=== PATIENT | female | born 1980 | race Caucasian/White ===

== ENCOUNTER 2016-08-02 10:32 | Outpatient (CLI) ==
[2015-06-28 23:15] VITALS: BMI 50.6
[2016-08-02 11:01] LABS: BASOPHILS % (AUTO) 0.3 % (0.0-3.0); EOSINOPHILS # (AUTO) 0.2 K/ul (0.0-0.7); EOSINOPHILS % (AUTO) 1.4 % (0.0-7.0); HEMATOCRIT 48.1 % (37.0-47.0); IMMATURE GRANULOCYTE % (AUTO) 0.3 % (0.0-5.0); LYMPHOCYTES # (AUTO) 3.3 K/uL (0.60-3.4); MEAN CORPUSCULAR HGB CONC 31.2 (31.8-35.4); MEAN CORPUSCULAR VOLUME 92.9 fl (81.0-99.0); MONOCYTES # (AUTO) 0.9 K/uL (0.4-2.0); MONOCYTES % (AUTO) 6.4 (0-10); NEUTROPHILS # (AUTO) 9.2 K/ul (2.0-6.9); NEUTROPHILS % (AUTO) 67.6; PLATELET COUNT 257 10^3/uL (140-440); RED BLOOD COUNT 5.18 10^6/ul (4.20-5.40); WHITE BLOOD COUNT 13.55 K/ul (4.6-10.2)
[2016-08-02 11:14] LABS: ALBUMIN 3.5 g/dL (3.4-5.0); ALBUMIN/GLOBULIN RATIO 0.95; ANION GAP 14.7; BILIRUBIN,TOTAL 0.39 mg/dL (0.00-1.20); BUN/CREATININE RATIO 6.08; CALCIUM 8.8 mg/dL (8.2-10.2); CREATININE 1.15 mg/dL (0.60-1.30); POTASSIUM 3.7 mmol/L (3.5-5.10); TOTAL PROTEIN 7.2 g/dL (6.4-8.2)
--- NOTE | 2016-08-02 13:57 | DI ---
EXAM: Chest two views HISTORY: Pneumonia, unspecified organism COMPARISON: 07/20/2016 TECHNIQUE: Two views of the chest were performed FINDINGS: Lungs are clear. Prominent epicardial fat pad present. There is no pleural effusion or p neumothorax. The heart is normal in size. The mediastinal contour is normal. There are no acute a bnormalities of the bones. IMPRESSION: No acute cardiopulmonary process.
== END 2016-08-02 10:33 | disposition home or self-care (01) ==
LOC: LAB 10:32
PROVIDERS: ATTEND Nurse Practitioner Family
DX: J18.9 Pneumonia, unspecified organism (principal); E78.5 Hyperlipidemia, unspecified
CPT/HCPCS: 36415; 80053; 85025

== ENCOUNTER 2016-08-05 10:13 | Outpatient (CLI) ==
[2015-06-28 23:15] VITALS: BMI 50.6
--- NOTE | 2016-08-05 11:21 | CT ---
EXAM: CT scan of the chest with and without contrast HISTORY: Tobacco use. TECHNIQUE: Imaging of the chest was performed before and after the intravenous administration of co ntrast. 5 mm thick axial images and coronal and sagittal reconstructions were provided for interpre tation. Comparison 08/02/2016 two-view chest. FINDINGS: The lungs are clear. The heart is normal size. No mediastinal masses are seen. There i s a normal appearance of the thoracic aorta. No lytic or blastic lesions are seen within the osseou s structures. There has been previous cholecystectomy. There is a tiny hypodense nodule seen within the left adrenal gland measuring up to 1.7 cm transverse, 1.1 cm AP. There is an additional tiny no dule seen within the right adrenal gland measuring up to 1.5 cm transverse maximum. IMPRESSION: No acute abnormalities are seen within the thorax. Small probable adrenal adenomas. A 6-month follow-up CT scan of the abdomen can be performed withou t contrast to check for stability.
== END 2016-08-05 10:14 | disposition home or self-care (01) ==
LOC: RAD 10:13
PROVIDERS: ATTEND Nurse Practitioner Family
DX: J18.9 Pneumonia, unspecified organism (principal); J98.11 Atelectasis; Z72.0 Tobacco use

== ENCOUNTER 2016-11-01 16:07 | Outpatient (CLI) ==
[2015-06-28 23:15] VITALS: BMI 50.6
[2016-11-01 16:29] LABS: BASOPHILS % (AUTO) 0.3 % (0.0-3.0); EOSINOPHILS # (AUTO) 0.1 K/ul (0.0-0.7); HEMATOCRIT 44.1 % (37.0-47.0); HEMOGLOBIN 14.7 g/dl (12.0-16.0); IMMATURE GRANULOCYTE % (AUTO) 0.3 % (0.0-5.0); LYMPHOCYTES # (AUTO) 3.2 K/uL (0.60-3.4); LYMPHOCYTES % (AUTO) 27.6 (10.0-50.0); MEAN CORPUSCULAR HEMOGLOBIN 30.7 pg (27.0-31.0); MEAN CORPUSCULAR HGB CONC 33.3 (31.8-35.4); MEAN CORPUSCULAR VOLUME 92.1 fl (81.0-99.0); MONOCYTES # (AUTO) 0.8 K/uL (0.4-2.0); NEUTROPHILS # (AUTO) 7.4 K/ul (2.0-6.9); NEUTROPHILS % (AUTO) 63.8; PLATELET COUNT 195 10^3/uL (140-440); RED BLOOD COUNT 4.79 10^6/ul (4.20-5.40); WHITE BLOOD COUNT 11.64 K/ul (4.6-10.2)
[2016-11-01 16:40] LABS: ALBUMIN 3.7 g/dL (3.4-5.0); ALBUMIN/GLOBULIN RATIO 1.06; ANION GAP 10.8; BILIRUBIN,TOTAL 0.53 mg/dL (0.00-1.20); BUN/CREATININE RATIO 8.57; CALCIUM 8.8 mg/dL (8.2-10.2); CREATININE 1.05 mg/dL (0.60-1.30); POTASSIUM 3.8 mmol/L (3.5-5.10); TOTAL PROTEIN 7.2 g/dL (6.4-8.2)
== END 2016-11-01 16:08 | disposition home or self-care (01) ==
LOC: CAR 16:07
PROVIDERS: ATTEND Nurse Practitioner Family
DX: R00.2 Palpitations (principal); R11.2 Nausea with vomiting, unspecified; R19.7 Diarrhea, unspecified
CPT/HCPCS: 36415; 80053; 85025; 93005; 93010

== ENCOUNTER 2017-02-02 11:18 | Outpatient (CLI) ==
[2015-06-28 23:15] VITALS: BMI 50.6
--- NOTE | 2017-02-02 11:56 | DI ---
Exam: Five x-rays of the lumbar spine. Comparison: 04/17/2009. Reason for exam: Back pain. FINDINGS: No acute fracture or listhesis. There is similar appearing vertebral body loss when comp ared to the previous imaging. No unexplained calcific soft tissue densities or radiopaque retained f oreign bodies. No obvious pars defects are seen. There is straightening of the lumbar lordotic curv e. Impression: 1. No acute fracture or listhesis in the lumbar spine. 2. Degenerative disc disease.
== END 2017-02-02 11:19 | disposition home or self-care (01) ==
LOC: RAD 11:18
PROVIDERS: ATTEND Emergency Medicine
DX: M54.5 Low back pain (principal)

== ENCOUNTER 2017-03-03 10:13 | Inpatient (IN) ==
[2017-03-03] MEDS ORDERED: ATROPINE SULFATE PFS IVP PRN (10:33)
[2017-03-03] MEDS ORDERED: VISTARIL INJ IM PRN (10:33)
[2017-03-03] MEDS ORDERED: NITROSTAT SL PRN (10:33)
[2017-03-03] MEDS ORDERED: TYLENOL PO PRN (10:33)
[2017-03-03] MEDS ORDERED: DEMEROL 25 MG/ML SYRINGE IVP PRN ×2 (10:53→15:06)
[2017-03-03] MEDS ORDERED: VASOTEC IV IVP STA (10:58)
[2017-03-03] MEDS ORDERED: VASOTEC IV IVP PRN (10:58)
[2017-03-03] MEDS: SODIUM CHLORIDE 1,000 ML IV SCH ×2 (11:15→20:19)
[2017-03-03] MEDS: ZOFRAN 4 MG/2 ML IVP PRN (11:21)
[2017-03-03 11:36] LABS: BASOPHILS % (AUTO) 0.2 % (0.0-3.0); EOSINOPHILS # (AUTO) 0.1 K/ul (0.0-0.7); EOSINOPHILS % (AUTO) 0.8 % (0.0-7.0); HEMATOCRIT 47.1 % (37.0-47.0); IMMATURE GRANULOCYTE % (AUTO) 0.3 % (0.0-5.0); LYMPHOCYTES # (AUTO) 2.4 K/uL (0.60-3.4); LYMPHOCYTES % (AUTO) 17.8 (10.0-50.0); MEAN CORPUSCULAR HEMOGLOBIN 30.5 pg (27.0-31.0); MEAN CORPUSCULAR VOLUME 89.9 fl (81.0-99.0); NEUTROPHILS # (AUTO) 10.1 K/ul (2.0-6.9); NEUTROPHILS % (AUTO) 73.9; PLATELET COUNT 186 10^3/uL (140-440); RED BLOOD COUNT 5.24 10^6/ul (4.20-5.40); WHITE BLOOD COUNT 13.66 K/ul (4.6-10.2)
[2017-03-03 11:43] VITALS: BMI 47.4
--- NOTE | 2017-03-03 12:04 | DI ---
EXAM: Two views of the chest. History: Cough. Comparison: Chest radiograph 08/02/2016 Findings: Heart size is normal. No focal consolidation. No appreciable pleural fluid and no pneum othorax. No acute osseous abnormalities. Impression: No acute cardiopulmonary process.
[2017-03-03 12:09] LABS: ALBUMIN 3.4 g/dL (3.4-5.0); ALBUMIN/GLOBULIN RATIO 1.03; ANION GAP 14.2; BILIRUBIN,TOTAL 0.68 mg/dL (0.00-1.20); BUN/CREATININE RATIO 7.2; CALCIUM 8.8 mg/dL (8.2-10.2); CREATININE 1.11 mg/dL (0.60-1.30); POTASSIUM 3.2 mmol/L (3.5-5.10); TOTAL PROTEIN 6.7 g/dL (6.4-8.2); TROPONIN I 0.019 ng/ml (0.0000-0.4000)
--- NOTE | 2017-03-03 12:10 | CT ---
EXAM: CT of the abdomen pelvis without contrast History: Abdominal pain. Comparison: CT abdomen pelvis 04/29/2015 Technique: Multiplanar CT images through the abdomen pelvis were obtained without the administratio n of IV contrast Findings: Lung bases are free of consolidation. No acute osseous abnormalities. Status post cholecystectomy. No focal liver or splenic lesions. No peripancreatic inflammation. S table small benign bilateral adrenal adenomas. No renal stones and no hydronephrosis. No bowel obs truction. Wall thickening involving multiple loops of small bowel with adjacent inflammation and hy peremia. The appendix is not dilated or inflamed. Colonic diverticulosis. There is also mild wall thickening of the colon. Bladder is not well distended. No focal bladder wall thickening. Small to moderate amount of fluid within the pelvis. Fluid seen within the rectum. Uterus is not seen. Impression: 1. Enterocolitis with the inflammation most significant involving the distal small bowel. Etiology is most likely infectious or inflammatory. No bowel obstruction. 2. Small to moderate amount of fluid within the pelvis. 3. Colonic diverticulosis. 4. Stable small benign bilateral adrenal adenomas
[2017-03-03] MEDS ORDERED: NON-FORMULARY MEDICATION (Hydroxyzine Hcl [Hydroxyzine Hcl] 50 MG) PO PRN ×22 (12:18)
[2017-03-03] MEDS ORDERED: NON-FORMULARY MEDICATION (Omeprazole Magnesium [Prilosec Otc] 20 MG) PO SCH ×22 (12:30)
[2017-03-03] MEDS ORDERED: ATARAX PO PRN (12:38)
[2017-03-03 13:18] LABS: BILIRUBIN,URINE 2+ (NEGATIVE); KETONES,URINE 1+ (NEGATIVE); LEUKOCYTE ESTERASE ,URINE Negative (NEGATIVE); NITRITE,URINE Negative (NEGATIVE); PROTEIN,URINE 2+ (NEGATIVE); URINE, BLOOD Negative (NEGATIVE)
[2017-03-03 13:21] LABS: ADD URINE MICROSCOPIC YES
[2017-03-03] MEDS ORDERED: DEMEROL 50 MG/ML SYRINGE IVP PRN (15:37)
[2017-03-03] MEDS: TOPAMAX PO SCH (15:49)
[2017-03-03] MEDS: DIAMOX PO SCH ×2 (18:14→20:13)
[2017-03-03 19:24] LABS: TROPONIN I 0.017 ng/ml (0.0000-0.4000)
[2017-03-03] MEDS: DEMEROL 50 MG/ML SYRINGE IVP PRN (20:15)
[2017-03-03] MEDS: PROTONIX IV IVP SCH (20:17)
[2017-03-03] MEDS ORDERED: NON-FORMULARY MEDICATION (Lovastatin [Lovastatin] 10 MG) PO SCH (21:00)
[2017-03-03] MEDS ORDERED: ACETAZOLAMIDE 500 MG PO SCH (21:00)
[2017-03-04] MEDS: DEMEROL 50 MG/ML SYRINGE IVP PRN ×5 (00:40→20:04)
[2017-03-04 04:17] LABS: BASOPHILS % (AUTO) 0.2 % (0.0-3.0); EOSINOPHILS # (AUTO) 0.3 K/ul (0.0-0.7); EOSINOPHILS % (AUTO) 2.5 % (0.0-7.0); HEMATOCRIT 42.3 % (37.0-47.0); IMMATURE GRANULOCYTE % (AUTO) 0.3 % (0.0-5.0); LYMPHOCYTES # (AUTO) 3.6 K/uL (0.60-3.4); LYMPHOCYTES % (AUTO) 29.6 (10.0-50.0); MEAN CORPUSCULAR HEMOGLOBIN 30.8 pg (27.0-31.0); MEAN CORPUSCULAR HGB CONC 33.1 (31.8-35.4); MEAN CORPUSCULAR VOLUME 93.2 fl (81.0-99.0); MONOCYTES % (AUTO) 7.9 (0-10); NEUTROPHILS # (AUTO) 7.2 K/ul (2.0-6.9); NEUTROPHILS % (AUTO) 59.5; PLATELET COUNT 150 10^3/uL (140-440); RED BLOOD COUNT 4.54 10^6/ul (4.20-5.40); WHITE BLOOD COUNT 12.12 K/ul (4.6-10.2)
[2017-03-04 04:38] LABS: ALBUMIN/GLOBULIN RATIO 1.15; ANION GAP 12.9; BILIRUBIN,TOTAL 0.5 mg/dL (0.00-1.20); BUN/CREATININE RATIO 7.2; CALCIUM 8.2 mg/dL (8.2-10.2); CREATININE 1.11 mg/dL (0.60-1.30); POTASSIUM 3.9 mmol/L (3.5-5.10); TOTAL PROTEIN 5.6 g/dL (6.4-8.2)
[2017-03-04] MEDS: SODIUM CHLORIDE 1,000 ML IV SCH ×3 (05:28→22:40)
[2017-03-04] MEDS ORDERED: PRILOSEC PO SCH (06:30)
[2017-03-04] MEDS: DIAMOX PO SCH ×4 (08:12→20:02)
[2017-03-04] MEDS: PROTONIX IV IVP SCH ×2 (08:13→20:12)
--- NOTE | 2017-03-04 10:25 | PCM.PROG ---
Attending Provider: ATTENDING PROVIDER: [facility] DATE OF SERVICE: 03/04/17 SUBJECTIVE: This 36 year old WHITE/ F was hospitalized 03/03/17 with gastroenteritis, intractable vomiting and uncontrolled hypertension. The patient has been given Demerol and Zofran q.6hr ct scan showed enteritis. still having diarrhea no vomiting. no fever or chillsThe patient is lying in bed. She has some abdominal discomfort admitted with gastroenteritis intractable vomiting and uncontrolled htn. patient has been given demerol and zofran q.6hr ct scan showed enteritis. still having diarrhea no vomiting. no fever or chills REVIEW OF SYSTEMS: CONSTITUTIONAL: No fever, no chills. ENDOCRINE: No weight loss or weight gain. HEENT: No sinus drainage, no sore throat. CVS: No angina symptoms. No CHF symptoms. No palpitations. No atypical chest pain for CAD. No shortness of breath. RESPIRATORY: No cough, no hemoptysis. GI: No melena. No abdominal pain. No nausea, no vomiting. : No hematuria. No polyuria. SKIN: No rash. No wounds. MUSCULOSKELETAL: No pain. BAND SAW OPERATOR: No blackout, no dizziness. No headache. No double vision. PSYCHIATRIC: Not anxious; no depression. No suicidal thoughts. No homicidal thoughts. PHYSICAL EXAMINATION: GENERAL: Lying in bed in no distress. VITAL SIGNS: Temperature 97.0 F, Pulse 78, Respiratory Rate 13, BP 145/92, Pulse Ox 98% HEENT: Normocephalic, atraumatic. Mucosa is dry, pallor positive. NECK: No JVP, no carotid bruit. No lymphadenopathy. CARDIAC: S1, S2, no S3. No murmur, gallop or regurgitation. LUNGS: Clear to auscultation. ABDOMEN: Tenderness all over belly. Bowel sounds hyperactive. No rigidity, guarding or CVA tenderness. EXTREMITIES: No clubbing, cyanosis or edema. NEUROLOGIC: Awake, alert and oriented x3. LYMPHATIC: No palpable lymph nodes SKIN: Not dry. Intact. MUSCULOSKELETAL: No joint swelling. LAB REVIEW: 03/04/17 04:10 03/04/17 04:10 03/04/17 04:10: WBC 12.12 H, RBC 4.54, Hgb 14.0, Hct 42.3, MCV 93.2, MCH 30.8, MCHC 33.1, RDW Coeff of Nilo 13.1, Plt Count 150, Immature Gran % (Auto) 0.3, Neut % (Auto) 59.5, Lymph % (Auto) 29.6, [place] % (Auto) 7.9, Eos % (Auto) 2.5, Baso % (Auto) 0.2, Immature Gran # (Auto) 0.0, Neut # 7.2 H, Lymph # 3.6 H, [place] # 1.0, Eos # 0.3, Baso # 0.0, Sodium 143, Potassium 3.9, Chloride 109 H, Carbon Dioxide 25, Anion Gap 12.9, BUN 8, Creatinine 1.11, Estimated GFR (MDRD) 55.00, BUN/Creatinine Ratio 7.20, Glucose 96, Calcium 8.2, Total Bilirubin 0.50 , AST 10 L, ALT 12, Alkaline Phosphatase 48, Total Protein 5.6 L, Albumin 3.0 L , Globulin 2.6, Albumin/Globulin Ratio 1.15 03/03/17 18:50: Total Creatine Kinase 50, Myoglobin 43, Troponin I 0.0170 03/03/17 14:57: Lactic Acid 14.4, Procalcitonin < 0.05 03/03/17 13:14: Urine Color Dark, Urine Clarity Turbid, Urine pH 6.0, Ur Specific [place] >=1.030, Urine Protein 2+, Urine Glucose (UA) Negative, Urine Ketones 1+, Urine Blood Negative, Urine Nitrite Negative, Urine Bilirubin 2+, Urine Urobilinogen 0.2, Ur Leukocyte Esterase Negative, Ur Squamous Epith Cells Not present, Amorphous Sediment 4+ 03/03/17 11:23: Sodium 140, Potassium 3.2 L, Chloride 108 H, Carbon Dioxide 21, Anion Gap 14.2, BUN 8, Creatinine 1.11, Estimated GFR (MDRD) 55.00, BUN/ Creatinine Ratio 7.20, Glucose 112 H, Calcium 8.8, Total Bilirubin 0.68, AST 12 L, ALT 14, Alkaline Phosphatase 59, Total Creatine Kinase 45, Myoglobin 38, Troponin I 0.0190, Total Protein 6.7, Albumin 3.4, Globulin 3.3, Albumin/ Globulin Ratio 1.03, Amylase 36, Lipase 6 L 03/03/17 10:33: WBC 13.66 H, RBC 5.24, Hgb 16.0, Hct 47.1 H, MCV 89.9, MCH 30.5 , MCHC 34.0, RDW Coeff of Nilo 12.9, Plt Count 186, Immature Gran % (Auto) 0.3, Neut % (Auto) 73.9, Lymph % (Auto) 17.8, [place] % (Auto) 7.0, Eos % (Auto) 0.8, Baso % (Auto) 0.2, Immature Gran # (Auto) 0.0, Neut # 10.1 H, Lymph # 2.4, [place] # 1.0, Eos # 0.1, Baso # 0.0 ASSESSMENT: 1. Acute gastroenteritis 2. Uncontrolled hypertension 3. Dyslipidemia 4. Obesity 5. History of pseudo tumor cerebri 6. GERD 7. Migraine headache 8. History of stroke, seen by Dr. Kohli. 9. Depression PLAN: 1. Advised to walk 2. Clear liquid 3. Changed meds to p.o. 4. No DVT prophylaxis secondary to patient being active Plan and coordination of the patient's care discussed in the presence of Manager Heart and nurse. CONDITION: Stable SCRIBED BY: MARTHA UGALDE, Cloud Physicist scribed while in presence of service [facility] ([id number])
[2017-03-04] MEDS: LOPRESSOR PO SCH (20:03)
[2017-03-04] MEDS: CELEXA PO SCH (20:03)
[2017-03-04] MEDS: MEVACOR PO SCH (20:03)
[2017-03-04] MEDS: TOPAMAX PO SCH (20:03)
[2017-03-05] MEDS: DEMEROL 50 MG/ML SYRINGE IVP PRN ×2 (01:28→05:45)
[2017-03-05 04:44] LABS: BASOPHILS % (AUTO) 0.2 % (0.0-3.0); EOSINOPHILS # (AUTO) 0.3 K/ul (0.0-0.7); EOSINOPHILS % (AUTO) 2.4 % (0.0-7.0); HEMATOCRIT 41.4 % (37.0-47.0); HEMOGLOBIN 13.4 g/dl (12.0-16.0); IMMATURE GRANULOCYTE % (AUTO) 0.3 % (0.0-5.0); LYMPHOCYTES # (AUTO) 2.9 K/uL (0.60-3.4); LYMPHOCYTES % (AUTO) 26.4 (10.0-50.0); MEAN CORPUSCULAR HEMOGLOBIN 30.6 pg (27.0-31.0); MEAN CORPUSCULAR HGB CONC 32.4 (31.8-35.4); MEAN CORPUSCULAR VOLUME 94.5 fl (81.0-99.0); MONOCYTES # (AUTO) 0.8 K/uL (0.4-2.0); MONOCYTES % (AUTO) 7.4 (0-10); NEUTROPHILS % (AUTO) 63.3; PLATELET COUNT 151 10^3/uL (140-440); RED BLOOD COUNT 4.38 10^6/ul (4.20-5.40); WHITE BLOOD COUNT 11.08 K/ul (4.6-10.2)
[2017-03-05 05:05] LABS: ALBUMIN 2.9 g/dL (3.4-5.0); ANION GAP 10.9; BILIRUBIN,TOTAL 0.4 mg/dL (0.00-1.20); BUN/CREATININE RATIO 6.31; CALCIUM 8.1 mg/dL (8.2-10.2); CREATININE 0.95 mg/dL (0.60-1.30); POTASSIUM 3.9 mmol/L (3.5-5.10); TOTAL PROTEIN 5.8 g/dL (6.4-8.2)
[2017-03-05] MEDS: ASPIRIN EC PO SCH (08:21)
[2017-03-05] MEDS: TOPAMAX PO SCH ×2 (08:21→20:53)
[2017-03-05] MEDS: DIAMOX PO SCH ×4 (08:21→20:53)
[2017-03-05] MEDS: SODIUM CHLORIDE 1,000 ML IV SCH ×3 (09:10→20:10)
[2017-03-05] MEDS: PROTONIX IV IVP SCH ×2 (09:11→20:19)
[2017-03-05] MEDS ORDERED: ROCEPHIN 1 GM in SODIUM CHLORIDE 50 ML IV STA (09:28)
[2017-03-05] MEDS: DILAUDID 2 MG/ML SYRINGE IVP PRN ×3 (09:59→22:35)
--- NOTE | 2017-03-05 10:19 | CT ---
EXAM: CT scan of the abdomen and pelvis without contrast HISTORY: Abdominal pain TECHNIQUE: Imaging of the abdomen and pelvis was performed without contrast. 3 mm thin axial image s and coronal and sagittal reconstructions were provided for interpretation. Comparison 03/03/2017. FINDINGS: A tiny amount of free fluid is seen adjacent to the liver. The pancreas, adrenal glands and kidneys appear normal. The patient has had previous cholecystectomy. The small and large bowel loops are normal caliber. Inflammatory changes are again seen along the distal small bowel loops i n the right lower quadrant. The appendix appears normal. The colon appears to be normal caliber. There is no free air. The helical images obtained through the pelvis demonstrate a normal appearance of the rectum. There is a small amount of free fluid seen within the pelvis. Scattered diverticula are seen within the sigmoid colon without acute inflammation. Lung bases are clear. No lytic or blastic lesions are se en within the osseous structures. IMPRESSION: Inflammatory changes are again seen along the distal small bowel loops in the right low er quadrant suspicious for enteritis. No definite evidence for small bowel obstruction. There is no ureteral obstruction. There has been previous cholecystectomy. Mild diverticular disease of the sigmoid colon without acute inflammation.
[2017-03-05] MEDS: FLAGYL PO SCH ×2 (12:34→20:53)
[2017-03-05] MEDS: MEVACOR PO SCH (20:53)
[2017-03-05] MEDS: CELEXA PO SCH (20:53)
[2017-03-05] MEDS: LOPRESSOR PO SCH (20:53)
[2017-03-06] MEDS: DILAUDID 2 MG/ML SYRINGE IVP PRN ×3 (04:23→17:26)
[2017-03-06] MEDS: FLAGYL PO SCH ×3 (04:23→20:12)
[2017-03-06] MEDS: SODIUM CHLORIDE 1,000 ML IV SCH ×2 (04:59→15:36)
[2017-03-06 05:09] LABS: BASOPHILS % (AUTO) 0.2 % (0.0-3.0); EOSINOPHILS # (AUTO) 0.3 K/ul (0.0-0.7); HEMATOCRIT 39.7 % (37.0-47.0); HEMOGLOBIN 12.9 g/dl (12.0-16.0); IMMATURE GRANULOCYTE % (AUTO) 0.3 % (0.0-5.0); LYMPHOCYTES # (AUTO) 2.6 K/uL (0.60-3.4); MEAN CORPUSCULAR HEMOGLOBIN 30.7 pg (27.0-31.0); MEAN CORPUSCULAR HGB CONC 32.5 (31.8-35.4); MEAN CORPUSCULAR VOLUME 94.5 fl (81.0-99.0); MONOCYTES # (AUTO) 0.8 K/uL (0.4-2.0); NEUTROPHILS # (AUTO) 5.8 K/ul (2.0-6.9); NEUTROPHILS % (AUTO) 61.5; PLATELET COUNT 150 10^3/uL (140-440); WHITE BLOOD COUNT 9.48 K/ul (4.6-10.2)
[2017-03-06 05:42] LABS: ALBUMIN/GLOBULIN RATIO 1.25; ANION GAP 12.7; BILIRUBIN,TOTAL 0.25 mg/dL (0.00-1.20); BUN/CREATININE RATIO 4.04; CALCIUM 8.2 mg/dL (8.2-10.2); CREATININE 0.99 mg/dL (0.60-1.30); POTASSIUM 3.7 mmol/L (3.5-5.10); TOTAL PROTEIN 5.4 g/dL (6.4-8.2)
[2017-03-06] MEDS: ASPIRIN EC PO SCH (08:03)
[2017-03-06] MEDS: TOPAMAX PO SCH ×2 (08:03→20:10)
[2017-03-06] MEDS: ROCEPHIN 1 GM in SODIUM CHLORIDE 50 ML IV SCH (08:03)
[2017-03-06] MEDS: DIAMOX PO SCH ×4 (08:04→20:11)
[2017-03-06] MEDS: PROTONIX IV IVP SCH ×2 (09:05→20:08)
[2017-03-06] MEDS ORDERED: SODIUM CHLORIDE 1,000 ML IV SCH (15:34)
[2017-03-06] MEDS: ZESTRIL PO SCH (15:54)
[2017-03-06] MEDS: ZOFRAN 4 MG/2 ML IVP PRN (20:09)
[2017-03-06] MEDS: LOPRESSOR PO SCH (20:12)
[2017-03-06] MEDS: CELEXA PO SCH (20:13)
[2017-03-06] MEDS: MEVACOR PO SCH (20:15)
[2017-03-07] MEDS: FLAGYL PO SCH ×2 (05:57→14:25)
[2017-03-07] MEDS: DILAUDID 2 MG/ML SYRINGE IVP PRN (05:58)
[2017-03-07 06:10] LABS: BASOPHILS % (AUTO) 0.3 % (0.0-3.0); EOSINOPHILS # (AUTO) 0.2 K/ul (0.0-0.7); EOSINOPHILS % (AUTO) 1.9 % (0.0-7.0); HEMATOCRIT 40.2 % (37.0-47.0); HEMOGLOBIN 13.3 g/dl (12.0-16.0); IMMATURE GRANULOCYTE % (AUTO) 0.2 % (0.0-5.0); LYMPHOCYTES # (AUTO) 2.1 K/uL (0.60-3.4); LYMPHOCYTES % (AUTO) 22.2 (10.0-50.0); MEAN CORPUSCULAR HEMOGLOBIN 30.9 pg (27.0-31.0); MEAN CORPUSCULAR HGB CONC 33.1 (31.8-35.4); MEAN CORPUSCULAR VOLUME 93.3 fl (81.0-99.0); MONOCYTES # (AUTO) 0.7 K/uL (0.4-2.0); MONOCYTES % (AUTO) 7.8 (0-10); NEUTROPHILS # (AUTO) 6.4 K/ul (2.0-6.9); NEUTROPHILS % (AUTO) 67.6; PLATELET COUNT 157 10^3/uL (140-440); RED BLOOD COUNT 4.31 10^6/ul (4.20-5.40)
[2017-03-07 06:29] LABS: ALBUMIN 3.3 g/dL (3.4-5.0); ALBUMIN/GLOBULIN RATIO 1.22; ANION GAP 11.7; BILIRUBIN,TOTAL 0.25 mg/dL (0.00-1.20); BUN/CREATININE RATIO 4.85; CALCIUM 8.5 mg/dL (8.2-10.2); CREATININE 1.03 mg/dL (0.60-1.30); POTASSIUM 3.7 mmol/L (3.5-5.10)
[2017-03-07] MEDS: ROCEPHIN 1 GM in SODIUM CHLORIDE 50 ML IV SCH (10:03)
[2017-03-07] MEDS: ASPIRIN EC PO SCH (10:13)
[2017-03-07] MEDS: DIAMOX PO SCH ×2 (10:13→14:26)
[2017-03-07] MEDS: TOPAMAX PO SCH (10:14)
[2017-03-07] MEDS: ZESTRIL PO SCH (10:15)
[2017-03-07] MEDS: PROTONIX IV IVP SCH (10:15)
--- NOTE | 2017-03-07 11:48 | PN ---
DATE OF SERVICE: 03/05/17 SUBJECTIVE: The patient was admitted with acute gastroenteritis, it has been the third day and the patient is still complaining of pain 8 out of 10 and Demerol is not helping. I did order CT of the abdomen and pelvis earlier today which did showed gastroenteritis. Pain medication is changed to Dilaudid 2mg every 6 hours. No vomiting but having diarrhea watery. REVIEW OF SYSTEMS: CONSTITUTIONAL: No fever, no chills. HEENT: Normal. ENDOCRINE: No weight gain, no weight loss. CVS: No angina symptoms. No CHF symptoms. No palpitations. No atypical chest pain for CAD. No shortness of breath. No PND, no orthopnea. RESPIRATORY: No cough, no hemoptysis. GI: No nausea, no vomiting. No abdominal pain. : No hematuria. No polyuria. MUSCULOSKELETAL:. No joint swelling. PSYCHIATRIC: Not anxious. No depression. No suicidal thoughts. No homicidal thoughts. SKIN: Intact. No rash. PHYSICAL EXAMINATION: V/S: Blood pressure 150/98, respiratory rate 20, heart rate 82 and temperature 97.9 GENERAL: The patient is mildly distressed from the pain. HEENT: Normocephalic, atraumatic. Mucosa dry. NECK: Supple. No JVD, no carotid bruit. No lymphadenopathy. LUNGS: Clear to auscultation. No rales or rhonchi. HEART: S1, S2 normal. No S3. No murmur, gallop or regurgitation. ABDOMEN: Soft, tender all over. Bowel sounds hypoactive. No rigidity. No rebound or guarding. No CVA tenderness. EXTREMITIES: No clubbing, cyanosis or pedal edema. MUSCULOSKELETAL: No joint swelling. NEUROLOGIC: Awake, alert, oriented times three. No focal deficit. LYMPHATIC: No lymph nodes palpable. SKIN: Intact. LABS: WBC 11.08, hgb 13.4, hct 41.4, plt count 151, sodium 141, potassium 3.9, chloride 111, Bicarb 23, BUN 6, creatinine 0.95. ASSESSMENT: 1. Acute gastroenteritis 2. Hypokalemia resolved 3. Intractable abdominal pain 4. Hypertension, labile 5. Obesity 6. History of migraine headaches 7. Status post cholecystectomy 8. Tubectomy 9. Hysterectomy PLAN: 1. Dilaudid 2mg Q 6 hours 2. Rocephin 1 gram daily 3. Flagyl 500mg Q 8 hours 4. Clear liquid diet 5. Activity as tolerated 6. No DVT prophylaxis as patient is active TIME SPENT: More than 35-40 minutes MTDD
[2017-03-07 12:27] VITALS: BP 161/94; TEMP 97.9
--- NOTE | 2017-03-07 13:58 | PN ---
DATE OF SERVICE: 03/06/17 SUBJECTIVE: The patient was admitted with the acute gastroenteritis. Repeat CAT scan still shows the gastroenteritis yesterday. The patient starting eating clear liquids today tomorrow and she wanted again by noon time. The pain is 5-10 and Dilaudid is helping. REVIEW OF SYSTEMS: CONSTITUTIONAL: No fever, no chills. HEENT: Normal. ENDOCRINE: No weight gain, no weight loss. CVS: No angina symptoms. No CHF symptoms. No palpitations. No atypical chest pain for CAD. No shortness of breath. No PND, no orthopnea. RESPIRATORY: No cough, no hemoptysis. GI: Nausea, no vomiting. No abdominal pain. : No hematuria. No polyuria. MUSCULOSKELETAL:. No joint swelling. PSYCHIATRIC: Not anxious. No depression. No suicidal thoughts. No homicidal thoughts. SKIN: Intact. No rash. PHYSICAL EXAMINATION: V/S: Blood pressure 150/93, respiratory rate 24, heart rate 97.4. HEENT: Normocephalic, atraumatic. Mucosa dry. NECK: Supple. No JVD, no carotid bruit. No lymphadenopathy. LUNGS:Decreased and clear to auscultation. No rales or rhonchi. HEART: S1, S2 normal. No S3. No murmur, gallop or regurgitation. ABDOMEN: Soft, tender all over. Bowel sounds hyperactive . No rigidity. No rebound or guarding. No CVA tenderness. EXTREMITIES: No clubbing, cyanosis or pedal edema. MUSCULOSKELETAL: No joint swelling. NEUROLOGIC: Awake, alert, oriented times three. No focal deficit. LYMPHATIC: No lymph nodes palpable. SKIN: Intact. ASSESSMENT: 1. Acute gastritis 2. Hypokalemia, resolved 3. Intractable abdominal pain 4. Hypertension, labile PLAN: 1. We will start the patient on the Lisinopril 40 daily 2. Decrease the IV fluids to the 30 ml per hour 3. Activity as tolerated Follow the patient in daily rounds. TIME SPENT: More than 30 minutes MTDD
--- NOTE | 2017-04-12 09:14 | DS ---
DATE OF SERVICE: 03/07/17 FINAL DIAGNOSIS: 1. Acute enterocolitis/gastroenteritis 2. Status post severe hypokalemia 3. Hypertension, labile 4. History of migraine headaches 5. History of cholecystectomy 6. Tubal ligation 7. Partial hysterectomy DISCHARGE INSTRUCTIONS: Discharge the patient home. Follow up with the [facility] in one week. MEDICATIONS AT DISCHARGE: Topamax 100mg PO twice a day Diamox sequels 500mg Po twice a day Lovastatin 10mg PO bedtime Hydroxyzine 50mg PO bedtime PRN Prilosec 20mg PO daily Celexa 20mg PO bedtime Flagyl 500mg PO Q 8 hours Zestril 40mg PO daily Lopressor 50mg PO twice a day NEW PRESCRIPTIONS: Flagyl 500mg PO 8 hours for 7 days Lisinopril 40mg PO daily Lopressor 50mg has been increased from daily to twice a day DIET INSTRUCTIONS: Soft diet for one week. ACTIVITY: Resume regular activity SMOKING: Current everyday smoker, Counseling for smoking done. DISEASE SPECIFIC EDUCATION: Enterocolitis Dehydration Hypokalemia Been discussed with the patient. HOSPITAL COURSE: Teresa Macias who is a 36 year old female who initially was seen in the [facility] for the abdominal pain, nausea and vomiting and was found to have hypokalemia of 3.21 and intractable nausea and vomiting and not able to keep anything down. Blood pressure was 154/104 and that time the patient was admitted to the hospital. Ordered CT of abdomen and pelvis which showed the enterocolitis. The patient kept NPO and amylase and lipase was normal. Procalcitonin was negative. Protonix 40mg PO twice a day, Flagyl 500mg Q 8 hours , Meperidine/Demerol was given for the pain, Rocephin 1 gram was given and IV fluids were given. With the rest and fluids the patient started gradually feeling better. Potassium was replaced at 3.2 and went up to 3.9. WBC became normal from 13.6 to 12.12 and 9.8. Meanwhile Lisinopril was made 40mg which did gradually decreased the blood pressure. In the repeat CAT scan again showed the enterocolitis and gastroenteritis. Soft diet was started which she did tolerated well. As the patient was tolerating the soft diet the patient is being discharged home. Advised for her to ambulate. Soft diet and liquid diet for one more week and will be seen at the [facility] for the followup. TIME SPENT: MORE THAN 55 MINUTES MTDMatilde
== END 2017-03-07 14:55 | disposition home or self-care (01) | DRG 392 ==
LOC: MEDSURG B 10:13
PROVIDERS: ADMIT Emergency Medicine; ATTEND Emergency Medicine
DX: K52.89 Other specified noninfective gastroenteritis and colitis (principal); E87.6 Hypokalemia; I10 Essential (primary) hypertension; G93.2 Benign intracranial hypertension; K21.9 Gastro-esophageal reflux disease without esophagitis; F17.200 Nicotine dependence, unspecified, uncomplicated; Z90.49 Acquired absence of other specified parts of digestive tract; Z86.69 Personal history of other diseases of the nervous system and sense organs; Z79.899 Other long term (current) drug therapy
CPT/HCPCS: 36415; 80053; 81001; 82150; 82550; 83605; 83690; 83874; 84145; 84484; 85025; 93005; 93010; 97802

== ENCOUNTER 2017-08-26 08:03 | Outpatient (CLI) | END 2017-08-26 08:04 | disposition home or self-care (01) | LOC: LAB 08:03 | PROVIDERS: ATTEND Nurse Practitioner Family | DX: I10 Essential (primary) hypertension (principal); Z72.0 Tobacco use | CPT/HCPCS: 36415; 80053; 80061; 84443; 85025 ==

== ENCOUNTER 2017-10-12 08:11 | Outpatient (CLI) ==
--- NOTE | 2017-10-12 11:08 | MRI ---
EXAM: MRI lumbar spine without IV contrast. DATE: 10/12/2017. HISTORY: Chronic lumbar back pain. TECHNIQUE: Sagittal and axial T1W and T2W sequences of the lumbar spine along with sagittal IR and c oronal T2W sequences were obtained using 1.2 Fabiana magnet. No IV contrast. COMPARISON: LS spine series 02 February 2017. MRI lumbar spine [address] abdomen/pelvis five 2016. FINDINGS: There are five [id number] lumbar vertebra. No lumbar scoliosis is evident. No acute lumbar fracture, subluxation, focal malignancy, or pars interarticularis defect is demonstrated. T1 W bone marrow signal is slightly brighter than the intervertebral discs and paraspinal muscles. IR b one marrow signal is mildly brighter than typically seen. Anterolateral osteophytes are most pronoun tiffany at L1-2 and L2-3. Chronic Schmorl's nodes are visible at T11, T12, L1, L2, L3, and L4. Minor T1 1-12 and mild T12-L1 disc space narrowing is detected. No acute sacral fracture or stress reaction i s evident. No acute sacroiliitis is detected. Conus medullaris terminates at T12-L1. Visible spina l cord is normal. No retroperitoneal lymphadenopathy, paraspinal mass, or aortic aneurysm is seen. Psoas muscles are n ormal. Posterior paraspinal muscles are symmetric bilaterally. Visible portions of the liver, splee n, and left kidney are normal. T2W bright, T1W dark, 13 x 12 mm focus in the medial cortex midzone r ight kidney is likely benign cyst. T2W/T1W intermediate signal lesions in the adrenal glands (13 x 1 7 mm right, 7.2 x 8.8 mm left) correspond with low density lesions on the CT scan (right HU = -21, le ft HU = -9). Segmental analysis: T11-12: Small concentric disc bulge and mild facet disease cause moderate central canal stenosis and minor/mild bilateral foraminal encroachment. T12-L1: Normal. L2-3: Minor posterior disc bulge does not cause central stenosis or foraminal stenosis. L2-3: Minor concentric disc bulge and minor facet disease cause slight bilateral inferior foraminal narrowing. No central canal stenosis. L3-4: Normal. L4-5: Normal, except for minimal facet arthropathy. L5-S1: Tiny midline right paracentral disc bulge and minor left facet arthropathy cause minimal left inferior foraminal encroachment. No central canal stenosis. IMPRESSIONS: 1. Lumbar spine mild spondylosis, minor facet arthropathy, and minor DDD - - similar to November 2010. 2. Moderate central canal stenosis at T11-12. 3. No lumbar spine central canal stenosis. 4. T-L-spine small, old Schmorl's nodes. 5. Minor/mild foraminal stenoses at T11-12 and L2-3. 6. Right kidney benign-appearing cortical cyst. 7. Bilateral adrenal lesions c/w lipid rich adenomas. 8. IR bone marrow signal is uniformly slightly brighter than typically seen. Etiology and significa nce of this finding is uncertain significance. There is no focal mass detected.
== END 2017-10-12 08:12 | disposition home or self-care (01) ==
LOC: RAD 08:11
PROVIDERS: ATTEND Nurse Practitioner Family
DX: M54.9 Dorsalgia, unspecified (principal); G89.29 Other chronic pain; M54.10 Radiculopathy, site unspecified

== ENCOUNTER 2017-10-18 09:59 | Outpatient (POV) | END 2017-10-18 17:00 | LOC: OUTPT 09:59 | PROVIDERS: ATTEND Otolaryngology | DX: H93.13 Tinnitus, bilateral (principal) ==

== ENCOUNTER 2018-02-03 14:50 | Outpatient (CLI) ==
--- NOTE | 2018-02-03 15:23 | DI ---
EXAM: Four views of the right knee. History: Right knee pain. Findings: No acute fracture or dislocation. Mild to moderate tricompartmental joint space narrowing with marginal sclerosis and osteophyte formation. No abnormal calcifications or radiopaque foreign bodies. Mild anterior subcutaneous edema. Impression: 1. No acute osseous abnormality. 2. Mild to moderate tricompartmental osteoarthritis. 3. Mild anterior subcutaneous edema
== END 2018-02-03 14:51 | disposition home or self-care (01) ==
LOC: RAD 14:50
PROVIDERS: ATTEND Nurse Practitioner Family
DX: M25.561 Pain in right knee (principal); W10.8XXA Fall (on) (from) other stairs and steps, initial encounter

== ENCOUNTER 2018-02-06 14:33 | Outpatient (CLI) ==
--- NOTE | 2018-02-06 16:45 | DI ---
EXAM: Four views of the skull HISTORY: Fall. COMPARISON: CT head 04/29/2015 FINDINGS: There is no depressed skull fracture or acute abnormality. Sutures are present. There is no abnormal periosteal reaction. There is no lytic or blastic lesion. The sinuses are clear. IMPRESSION: No depressed skull fracture is identified.
--- NOTE | 2018-02-06 16:48 | DI ---
EXAM: Cervical spine three view HISTORY: Unspecified fall, initial encounter COMPARISON: None TECHNIQUE: Three views cervical spine were performed FINDINGS: C6 and C7 partially obscured on the lateral view. Vertebral bodies normal height. No fra cture. No subluxation. Straightening of the normal cervical lordosis. Intervertebral spaces mainta ined. Prevertebral soft tissues appear normal. IMPRESSION: 1. No fracture or subluxation identified. 2. Straightening of the normal cervical lordosis.
--- NOTE | 2018-02-06 16:48 | DI ---
EXAM: Two views of the thorax lumbar spine HISTORY: Fall with pain. COMPARISON: Lumbar spine x-rays 02/02/2017 FINDINGS: There is no acute compression fracture or subluxation. There are few scattered anterior di sc osteophytes in the lower thoracic upper lumbar spine. The distal lumbar spine in the upper thorac ic spine are not visualized. There is no lytic or blastic lesion. The soft tissues are unremarkable with surgical clips in right upper quadrant. IMPRESSION: 1. No acute compression fracture or subluxation of the lower thoracic upper lumbar spine. 2. No significant change in mild degenerative change and osteophyte formation.
--- NOTE | 2018-02-06 16:48 | DI ---
EXAM: Sacrum and coccyx three view HISTORY: Myalgia COMPARISON: None FINDINGS: Sacroiliac joints intact. No fracture or dislocation. Degenerative changes in the spine. IMPERSSION: No fracture or dislocation.
== END 2018-02-06 14:34 | disposition home or self-care (01) ==
LOC: RAD 14:33
PROVIDERS: ATTEND Nurse Practitioner Family
DX: M54.2 Cervicalgia (principal); M54.5 Low back pain; S09.90XA Unspecified injury of head, initial encounter; M79.1 Myalgia; R41.89 Other symptoms and signs involving cognitive functions and awareness; W19.XXXA Unspecified fall, initial encounter

== ENCOUNTER 2018-02-10 10:14 | Outpatient (CLI) ==
--- NOTE | 2018-02-10 14:13 | CT ---
EXAM: CT head without contrast. HISTORY: Initial presentation for head trauma due to a fall. COMPARISON: 12/26/2015, 04/29/2015. TECHNIQUE: Multiple axial images of the brain were obtained from the skull base through the vertex w ithout intravenous contrast. Multiplanar reformats were provided. FINDINGS: There is no intracranial hemorrhage or extraaxial collection. The paul-white differentiat ion is maintained without evidence for acute large vascular territory infarction. Focal encephalomal acia within the right occipital lobe is stable. The cortical sulci and basal cisterns are well visua lized. There is no hydrocephalus, mass effect, or midline shift. The paranasal sinuses and mastoid air cells are clear. The calvarium is intact. IMPRESSION: 1. No acute intracranial abnormality. 2. Stable right occipital encephalomalacia.
== END 2018-02-10 10:15 | disposition home or self-care (01) ==
LOC: RAD 10:14
PROVIDERS: ATTEND Nurse Practitioner Family
DX: S09.90XA Unspecified injury of head, initial encounter (principal); R41.89 Other symptoms and signs involving cognitive functions and awareness; W19.XXXA Unspecified fall, initial encounter

== ENCOUNTER 2018-08-07 15:53 | Outpatient (CLI) | END 2018-08-07 15:54 | disposition home or self-care (01) | LOC: LAB 15:53 → RHC-LAB 15:54 | PROVIDERS: ATTEND Nurse Practitioner Family | DX: I10 Essential (primary) hypertension (principal); F40.10 Social phobia, unspecified; Z72.0 Tobacco use | CPT/HCPCS: 36415; 80053; 80061; 84443; 85025 ==

== ENCOUNTER 2018-11-20 23:48 | Emergency (ER) ==
--- NOTE | 2018-11-20 23:56 | ED.PDOC ---
General ED Provider: Dr. UZIEL HERRERA Chief Complaint: Tooth Problem Stated Complaint: few days achoing in molar area Time Seen by Physician: 23:50 Mode of Arrival: Walk-In Information Source: Patient Exam Limitations: No limitations Primary Care Provider: ALISIA AVILES Nursing and Triage Documentation Reviewed and Agree: Yes Does patient meet sepsis criteria?: No System Inflammatory Response Syndrome: Not Applicable Sepsis Protocol: For patient's 13 years and over: Temp is 96.8 and below OR 101 and greater Pulse >90 BPM Resp >20/minute Acutely Altered Mental Status Are patient's symptoms suggestive of a new infection, such as: -Pneumonia -Skin, Soft Tissue -Endocarditis -UTI -Bone, Joint Infection -Implantable Device -Acute Abdominal Infection -Wound Infection -Meningitis -Blood Stream Catheter Infection -Unknown EENT Complaint Exam - Dental/Oral Complaint/Exam Onset/Duration: few days Symptoms Are: Still present Timing: Constant Initial Severity: Moderate Current Severity: Moderate Character: Reports: Aching Aggravating: Reports: Heat, Chewing Alleviating: Reports: Cold Associated Signs and Symptoms: Reports: Swelling Related History: Reports: Similar episode Cardiac Risk Factors: Reports: None Dental/Oral Surgical History: Reports: None Tooth Findings: Present: Percussion tenderness, Gross decay Facial Swelling Present: No Bleeding Present: No Septal Hematoma: No Foreign Body Present: No Dysphagia Present: No Drooling Present: No Asymmetrical Tonsillar Swelling Present: No Uvula Midline: No Ita-tonsillar Fluctuence: No Trismus Present: No Palatal Petechiae Present: No Scarlatinaform Rash Present: No Differential Diagnoses: Dental Abcess, Dental Caries, Gingivitis, Odontogenic Pain, Sinusitis, TMJ Syndrome Review of Systems - Review Of Systems Constitutional: Reports: No symptoms Eyes: Reports: No symptoms Ears, Nose, Mouth, Throat: Reports: No symptoms Respiratory: Reports: No symptoms Cardiac: Reports: No symptoms GI: Reports: No symptoms : Reports: No symptoms Musculoskeletal: Reports: No symptoms Skin: Reports: No symptoms Neurological: Reports: No symptoms Endocrine: Reports: No symptoms Hematologic/Lymphatic: Reports: No symptoms All Other Systems: Reviewed and Negative Past Medical History - Past Medical History Previously Healthy: No Endocrine: Reports: None Cardiovascular: Reports: Hypertension Respiratory: Reports: None Hematological: Reports: None Gastrointestinal: Reports: None Genitourinary: Reports: None 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) Musculoskeletal: Reports: None Cancer: Reports: None - Surgical History General Surgical History: Reports: Cholecystectomy - Family History Family History: Reports: Unknown - Social History Smoking Status: Current every day smoker, Heavy tobacco smoker Hx Substance Use: No Alcohol Screening: None Physical Exam - Physical Exam Appearance: Well-appearing Ill-appearing: Mild Pain Distress: Mild Eyes: VIKTOR ENT: Ears normal Neck: Supple Respiratory: Airway patent Cardiovascular: RRR GI/: Soft Musculoskeletal: Normal strength Skin: Warm Neurological: Sensation intact Psychiatric: Affect appropriate Critical Care Note - Critical Care Note Total Time (mins): 0 Departure - Departure Time of Disposition: 00:24 Disposition: HOME SELF-CARE Discharge Problem: Dental caries Instructions: Toothache (ED) Condition: Good Pt referred to PMD for follow-up: Yes IPMP verified?: No Additional Instructions: Ibuprofen 600 mg tid x 5 days.Amoxycillin clav 875/125 bid 10 d,Beaman 10/325 tab q 6-8 hours for a breaktrough pain # 12 tab. Allergies/Adverse Reactions: Allergies codeine Adverse Reaction (Intermediate, Verified 11/20/18 23:57) Nausea steroids Adverse Reaction (Mild, Uncoded 11/20/18 23:57) neuro told pt not to take due to paplademia Disposition Discussed With: Patient, Family
[2018-11-20 23:57] VITALS: BP 126/88; TEMP 98.4; BMI 47.2
== END 2018-11-21 00:35 | disposition home or self-care (01) ==
LOC: ED 23:48
DX: K08.89 Other specified disorders of teeth and supporting structures (principal); K02.7 Dental root caries; F17.210 Nicotine dependence, cigarettes, uncomplicated
CPT/HCPCS: 99282

== ENCOUNTER 2019-01-11 16:24 | Emergency (ER) ==
[2019-01-11 16:34] VITALS: BP 139/84; TEMP 98.9; BMI 45.9
--- NOTE | 2019-01-11 16:45 | ED.PDOC ---
General ED Provider: Dr. UZIEL HERRERA Chief Complaint: Dizziness Stated Complaint: 38 y old complainng for a nausea and dizziness.Initial check showa normal vital signs and no distress,Neurologica and combined ENT check reveals no nystagmus.Nl active N +V.Patient says that she ids on Effexor, Ranitidine and Amlodipine for some venous illness.No acute distress.She was sent in by her nurse PCP for a CT of head,apparently due to the complaint of dizziness and vertigo.Hallpike and head thrust did not reveal any peripheral weaknessto the vestibuloocular reflex.,Also patient was not able to describe her sensation in other words than"dizzy"/.That might indicate. a psychogenic etiology.,I hope CT would r/o. any central involvement especial in patient who does not complain for any. hissing sounds and Meniers symptomatology. Time Seen by Physician: 16:50 Mode of Arrival: Walk-In Information Source: Patient Exam Limitations: No limitations Primary Care Provider: ALISIA AVILES Nursing and Triage Documentation Reviewed and Agree: Yes Does patient meet sepsis criteria?: No System Inflammatory Response Syndrome: Not Applicable Sepsis Protocol: For patient's 13 years and over: Temp is 96.8 and below OR 101 and greater Pulse >90 BPM Resp >20/minute Acutely Altered Mental Status Are patient's symptoms suggestive of a new infection, such as: -Pneumonia -Skin, Soft Tissue -Endocarditis -UTI -Bone, Joint Infection -Implantable Device -Acute Abdominal Infection -Wound Infection -Meningitis -Blood Stream Catheter Infection -Unknown Cardiovascular Complaint Exam - Hypertension Complaint/Exam Onset/Duration: on/off Symptoms Are: Resolved Timing: Intermittent Reported B/P Prior to Arrival: 139/84 Aggravating: Reports: None Alleviating: Reports: None Associated Signs and Symptoms: Reports: Anxiety, Dizziness Related History: Reports: Similar episode, Current Ca [place].Destinee Related Surgical History: Reports: None Cardiac Risk Factors: Reports: None Recent Change in Medications: No A/V Nicking: No Papilledema Present: No Carotid Bruit Present: No Femoral Pulses Bounding: No Differential Diagnoses: Endocrine Disorder, Hypertension, Hyperthyroidism, Migraine Quality Indicator For Non-Traumatic Chest Pain/Syncope: EKG Performed Review of Systems - Review Of Systems Constitutional: Reports: No symptoms Eyes: Reports: No symptoms Ears, Nose, Mouth, Throat: Reports: No symptoms Respiratory: Reports: No symptoms Cardiac: Reports: No symptoms GI: Reports: No symptoms : Reports: No symptoms Musculoskeletal: Reports: No symptoms Skin: Reports: No symptoms Neurological: Reports: No symptoms Endocrine: Reports: No symptoms Hematologic/Lymphatic: Reports: No symptoms All Other Systems: Reviewed and Negative Past Medical History - Past Medical History Previously Healthy: No Endocrine: Reports: None Cardiovascular: Reports: Hypertension Respiratory: Reports: None Hematological: Reports: None Gastrointestinal: Reports: None Genitourinary: Reports: None 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) Musculoskeletal: Reports: None Cancer: Reports: None Last Menstrual Period: PARTIAL HYSTERECTOMY - Surgical History General Surgical History: Reports: Cholecystectomy - Family History Family History: Reports: Unknown - Social History Smoking Status: Current every day smoker, Heavy tobacco smoker Hx Substance Use: No Alcohol Screening: None - Immunizations Tetanus Shot up to Date: No Physical Exam - Physical Exam Appearance: Well-appearing Ill-appearing: None Pain Distress: None Eyes: VIKTOR, EOMI, Conjunctiva clear ENT: Ears normal, Nose normal, Oropharynx normal Neck: Supple Respiratory: Airway patent, Breath sounds clear, Breath sounds equal Cardiovascular: RRR, Pulses normal GI/: Soft, Nontender, No masses, Bowel sounds normal, No Organomegaly, Splenomegaly Musculoskeletal: Normal strength, ROM intact, No edema Skin: Warm, Dry Neurological: Sensation intact, Motor intact, Reflexes intact, Cranial nerves intact, Alert, Oriented Psychiatric: Affect appropriate Interpretation - Radiology Interpretation Radiology Interpretation By: Radiologist Radiology Results: Negative Exam Interpreted: CT Scan Xray Comments: Normal CT head and Newg CxR Critical Care Note - Critical Care Note Total Time (mins): 0 Course - Course Hematology/Chemistry: 01/11/19 16:46 01/11/19 16:55 Orders, Labs, Meds: Lab Review 01/11/19 01/11/19 16:46 16:55 WBC 9.77 RBC 4.13 L Hgb 12.8 Hct 39.1 MCV 94.7 MCH 31.0 MCHC 32.7 RDW Coeff of Nilo 13.4 Plt Count 158 Immature Gran % (Auto) 0.3 Neut % (Auto) 64.4 Lymph % (Auto) 26.4 [place] % (Auto) 7.0 Eos % (Auto) 1.5 Baso % (Auto) 0.4 Immature Gran # (Auto) 0.0 Neut # (Auto) 6.3 Lymph # (Auto) 2.6 [place] # (Auto) 0.7 Eos # (Auto) 0.2 Baso # (Auto) 0.0 Sodium 139.2 Potassium 3.49 L Chloride 104.0 Carbon Dioxide 27.4 Anion Gap 11.29 BUN 9.8 Creatinine 1.26 Estimated GFR (MDRD) 47.00 BUN/Creatinine Ratio 7.77 Glucose 107.1 H Calcium 8.45 Total Bilirubin 0.30 AST 20.9 ALT 16.0 Alkaline Phosphatase 49.8 Total Protein 6.42 Albumin 3.71 Globulin 2.71 Albumin/Globulin Ratio 1.36 TSH Pending Orders Category Date Time Status EKG-(ED ONLY) Stat CARDIO 01/11/19 16:46 Completed CBC W/ AUTO DIFF Stat LAB 01/11/19 16:46 Completed COMPREHENSIVE METABOLIC PANEL Stat LAB 01/11/19 16:55 Results THYROID STIMULATING HORMONE Stat LAB 01/11/19 16:55 Results UA [URINALYSIS C & S IF INDICATED] Stat LAB 01/11/19 16:46 Uncollected CHEST, 1V AP ONLY Stat RADS 01/11/19 16:[address] HEAD W/O CONTRAST Stat RADS 01/11/19 16:53 Completed Vital Signs: Temp Pulse Resp BP Pulse Ox 01/11/19 16:30 98.9 F 67 18 139/84 97 ALFREDO Risk Score ALFREDO Risk Score: Risk Score Odds of by 30D 0 0.1 (0.1-0.2) 1 0.3 (0.2-0.3) 2 0.4 (0.3-0.5) 3 0.7 (0.6-0.9) 4 1.2 (1.0-1.5) 5 2.2 (1.9-2.6) 6 3.0 (2.5-3.6) 7 4.8 (3.8-6.1) Departure - Departure Time of Disposition: 17:53 Disposition: HOME SELF-CARE Discharge Problem: Migraine aura without headache Instructions: Acute Headache (ED) Condition: Good Pt referred to PMD for follow-up: Yes (ENT f/u to differentiate central v peripheral vertigo if any,) IPMP verified?: No Allergies/Adverse Reactions: Allergies codeine Adverse Reaction (Intermediate, Verified 01/11/19 16:33) Nausea steroids Adverse Reaction (Mild, Uncoded 01/11/19 16:33) neuro told pt not to take due to paplademia Disposition Discussed With: Patient
--- NOTE | 2019-01-11 17:35 | DI ---
EXAM: One-view chest HISTORY: Dizzy TECHNIQUE: Single frontal view the chest was obtained. Comparison 03/03/2017. FINDINGS: The heart is normal size. Lungs are clear. The pulmonary vasculature appears normal. Th e costophrenic angles are sharp. The osseous structures and mediastinal contours are normal. IMPRESSION: No active cardiopulmonary disease.
--- NOTE | 2019-01-11 17:36 | CT ---
EXAM: CT scan of the head without contrast HISTORY: Dizzy TECHNIQUE: Helical imaging of the head was performed without contrast. 5 mm thin axial images and c oronal and sagittal images were provided for interpretation. FINDINGS: The paul-white interface appears normal. No acute hemorrhages are seen. There is no mass effect. The basal cisterns are patent. There are no extraaxial collections. The lateral ventricle s and cortical sulci are normal. The paranasal sinuses and mastoid air cells are clear. The calvari um appears normal. IMPRESSION: No acute intracranial abnormalities are seen.
== END 2019-01-11 18:05 | disposition home or self-care (01) ==
LOC: ED 16:24
DX: G43.109 Migraine with aura, not intractable, without status migrainosus (principal); I10 Essential (primary) hypertension; F17.210 Nicotine dependence, cigarettes, uncomplicated
CPT/HCPCS: 36415; 80053; 84443; 85025; 93005; 93010; 99283

== ENCOUNTER 2019-03-21 15:51 | Emergency (ER) ==
[2019-03-21 15:54] VITALS: BP 171/123; TEMP 100.1; BMI 46.8
[2019-03-21] MEDS: LOMOTIL PO STA (16:20)
[2019-03-21] MEDS: TORADOL IM STA (16:21)
--- NOTE | 2019-03-21 17:16 | CT ---
EXAM: CT abdomen pelvis without intravenous contrast 03/21/2019. Sagittal and coronal reformatted i mages obtained HISTORY: Abdominal pain COMPARISON: 03/05/2017 FINDINGS: The liver shows no acute abnormality. Gallbladder has been removed. The adrenal glands show no acute process. Benign left adrenal adenoma appears stable. This measures 1.6 cm diameter. No hydronephrosis. The spleen and pancreas show no acute process. There is no evidence of bowel obstruction. Normal appendix. No free air or free fluid. No acute osseous abnormality. IMPRESSION: 1. Stable left adrenal adenoma. 2. No urinary bowel obstruction and normal appendix. 3. Status post cholecystectomy. 4. No acute inflammatory process identified within the abdomen or pelvis within the limitation of a noncontrast enhanced examination.
--- NOTE | 2019-03-21 17:36 | ED.PDOC ---
General ED Provider: Dr. TEA ADKINS Chief Complaint: Abdominal Pain Stated Complaint: ABOMINAL PAIN Time Seen by Physician: 16:00 (R.N. PRESENT AT ALL TIMES ) Mode of Arrival: Walk-In Information Source: Patient Exam Limitations: No limitations Primary Care Provider: ALISIA AVILES Nursing and Triage Documentation Reviewed and Agree: Yes Does patient meet sepsis criteria?: No System Inflammatory Response Syndrome: Not Applicable Sepsis Protocol: For patient's 13 years and over: Temp is 96.8 and below OR 101 and greater Pulse >90 BPM Resp >20/minute Acutely Altered Mental Status Are patient's symptoms suggestive of a new infection, such as: -Pneumonia -Skin, Soft Tissue -Endocarditis -UTI -Bone, Joint Infection -Implantable Device -Acute Abdominal Infection -Wound Infection -Meningitis -Blood Stream Catheter Infection -Unknown GI Complaint Exam - Abdominal Pain Complaint/Exam Onset: Gradual Symptoms Are: Still present Timing: Intermittent Initial Severity: Mild Current Severity: Mild Location of Pain: Diffuse Radiates To: Denies: Chest, Back, Flank, LLQ, RLQ, Inguinal Character: Reports: Cramping Aggravating: Reports: None Alleviating: Reports: None Associated Signs and Symptoms: Denies: Diaphoresis, Fever, Cough, Chest pain, Dizziness, Back pain, Constipation, Blood in stool, Dysuria, Urinary frequency, Decreased urine output, Decreased appetite, Vaginal bleeding, Vaginal discharge , Nausea, Vomiting, Diarrhea, Sore throat, Decreased activity AAA Risk Factors: Reports: None Cardiac Risk Factors: Reports: None Ectopic Risk Factors: Reports: None Ovarian Torsion Risk Factors: Reports: None Surgical Obstruction Risk Factors: Reports: None Related Surgical History: Reports: None Abdominal Findings: Present: None Review of Systems - Review Of Systems Constitutional: Reports: Malaise Eyes: Reports: No symptoms Ears, Nose, Mouth, Throat: Reports: No symptoms Respiratory: Reports: No symptoms Cardiac: Reports: No symptoms GI: Reports: Abdominal pain, Diarrhea : Reports: No symptoms Musculoskeletal: Reports: No symptoms Skin: Reports: No symptoms Neurological: Reports: No symptoms Endocrine: Reports: No symptoms Hematologic/Lymphatic: Reports: No symptoms All Other Systems: Reviewed and Negative Past Medical History - Past Medical History Previously Healthy: No Endocrine: Reports: None Cardiovascular: Reports: Hypertension Respiratory: Reports: None Hematological: Reports: None Gastrointestinal: Reports: None Genitourinary: Reports: None 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) Musculoskeletal: Reports: None Cancer: Reports: None Last Menstrual Period: N/A - Surgical History General Surgical History: Reports: Cholecystectomy - Family History Family History: Reports: Unknown - Social History Smoking Status: Current every day smoker, Heavy tobacco smoker Hx Substance Use: No Alcohol Screening: None Physical Exam - Physical Exam Appearance: Well-appearing, No pain distress, Well-nourished Eyes: VIKTOR, EOMI, Conjunctiva clear ENT: Ears normal, Nose normal, Oropharynx normal Respiratory: Airway patent, Breath sounds clear, Breath sounds equal, Respirations nonlabored Cardiovascular: RRR, Pulses normal, No rub, No murmur GI/: Soft, Nontender, No masses, Bowel sounds normal, No Organomegaly Musculoskeletal: Normal strength, ROM intact, No edema, No calf tenderness Skin: Warm, Dry, Normal color Neurological: Sensation intact, Motor intact, Reflexes intact, Cranial nerves intact, Alert, Oriented Psychiatric: Affect appropriate, Mood appropriate Interpretation - Radiology Interpretation Radiology Interpretation By: Radiologist Radiology Results: Positive (STABLE ADNENOMA ,) Critical Care Note - Critical Care Note Total Time (mins): 0 Course - Course Hematology/Chemistry: 03/21/19 16:15 03/21/19 16:15 Orders, Labs, Meds: Lab Review 03/21/19 03/21/19 03/21/19 16:15 16:15 16:15 WBC 11.38 H RBC 4.29 Hgb 13.6 Hct 40.8 MCV 95.1 MCH 31.7 H MCHC 33.3 RDW Coeff of Nilo 13.3 Plt Count 156 Immature Gran % (Auto) 0.4 Neut % (Auto) 76.4 Lymph % (Auto) 15.2 Mcdonald % (Auto) 6.5 Eos % (Auto) 1.2 Baso % (Auto) 0.3 Immature Gran # (Auto) 0.0 Neut # (Auto) 8.7 H Lymph # (Auto) 1.7 Mcdonald # (Auto) 0.7 Eos # (Auto) 0.1 Baso # (Auto) 0.0 Sodium 138.2 Potassium 3.41 L Chloride 108.8 H Carbon Dioxide 23.2 Anion Gap 9.61 BUN 11.2 Creatinine 1.20 Estimated GFR (MDRD) 50.00 BUN/Creatinine Ratio 9.33 Glucose 99.0 Calcium 8.28 L Total Bilirubin 0.57 AST 19.1 ALT 13.7 Alkaline Phosphatase 54.8 Total Protein 6.92 Albumin 3.79 Globulin 3.13 Albumin/Globulin Ratio 1.21 Amylase 82.5 Lipase 40.7 Serum , Qual Negative Urine Color Urine Clarity Urine pH Ur Specific [place] Urine Protein Urine Glucose (UA) Urine Ketones Urine Blood Urine Nitrite Urine Bilirubin Urine Urobilinogen Ur Leukocyte Esterase Urine Microscopic RBC Urine Microscopic WBC Ur Squamous Epith Cells Ur Transition Epith Cell Urine Bacteria Urine Mucus 03/21/19 16:15 WBC RBC Hgb Hct MCV MCH MCHC RDW Coeff of Nilo Plt Count Immature Gran % (Auto) Neut % (Auto) Lymph % (Auto) Mcdonald % (Auto) Eos % (Auto) Baso % (Auto) Immature Gran # (Auto) Neut # (Auto) Lymph # (Auto) Mcdonald # (Auto) Eos # (Auto) Baso # (Auto) Sodium Potassium Chloride Carbon Dioxide Anion Gap BUN Creatinine Estimated GFR (MDRD) BUN/Creatinine Ratio Glucose Calcium Total Bilirubin AST ALT Alkaline Phosphatase Total Protein Albumin Globulin Albumin/Globulin Ratio Amylase Lipase Serum , Qual Urine Color Yellow Urine Clarity Slightly Urine pH 6.5 Ur Specific [place] 1.025 Urine Protein Trace Urine Glucose (UA) Negative Urine Ketones Negative Urine Blood Trace-intact Urine Nitrite Negative Urine Bilirubin 1+ Urine Urobilinogen 0.2 Ur Leukocyte Esterase Negative Urine Microscopic RBC 2-5 Urine Microscopic WBC 10-20 Ur Squamous Epith Cells 30-50 Ur Transition Epith Cell 0-2 Urine Bacteria 4+ Urine Mucus 2+ Orders Category Date Time Status AMYLASE Stat LAB 03/21/19 16:15 Completed CBC W/ AUTO DIFF Stat LAB 03/21/19 16:15 Completed COMPREHENSIVE METABOLIC PANEL Stat LAB 03/21/19 16:15 Completed LIPASE Stat LAB 03/21/19 16:15 Completed SERUM Stat LAB 03/21/19 16:15 Completed STOOL CULTURE Stat LAB 03/21/19 17:04 Ordered URINALYSIS C & S IF INDICATED Stat LAB 03/21/19 16:15 Completed URINE CULTURE Stat LAB 03/21/19 16:15 Received c-diff [C. DIFFICILE] Routine LAB 03/21/19 17:03 Ordered Diphenoxylate HCl/Atropine [Lomotil] MEDS 03/21/19 16:08 Discontinued 2 tab PO ONCE STA Ketorolac Tromethamine [Toradol] MEDS 03/21/19 16:08 Discontinued 60 mg IM ONCE STA CT ABDOMEN/PELVIS WO CONTRAST Stat RADS 03/21/19 16:08 Completed Medications Discontinued Medications Generic Name Dose Route Start Last Admin Trade Name Hong PRN Reason Stop Dose Admin Diphenoxylate HCl/Atropine 2 tab 03/21/19 16:08 03/21/19 16:20 Lomotil PO 03/21/19 16:09 2 tab ONCE STA Administration Ketorolac Tromethamine 60 mg 03/21/19 16:08 03/21/19 16:21 Toradol IM 03/21/19 16:09 60 mg ONCE STA Administration Vital Signs: Temp Pulse Resp BP Pulse Ox 03/21/19 15:51 100.1 F H 86 16 171/123 H 98 Departure - Departure Time of Disposition: 17:35 Disposition: HOME SELF-CARE Discharge Problem: Abdominal pain, Hypokalemia Instructions: Abdominal Pain (ED), Hypokalemia (ED) Condition: Good Pt referred to PMD for follow-up: Yes IPMP verified?: No Additional Instructions: Please call your Family Physician as soon as possible to schedule a follow-up appointment. 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
== END 2019-03-21 17:44 | disposition home or self-care (01) ==
LOC: ED 15:51
DX: R10.84 Generalized abdominal pain (principal); E87.6 Hypokalemia; R19.7 Diarrhea, unspecified; I10 Essential (primary) hypertension; F17.210 Nicotine dependence, cigarettes, uncomplicated
CPT/HCPCS: 36415; 80053; 81001; 82150; 83690; 84703; 85025; 87015; 87045; 87086; 87493; 87899; 96372; 99283

== ENCOUNTER 2019-03-28 03:11 | Emergency (ER) ==
[2019-03-28 03:11] VITALS: BMI 46.8
[2019-03-28 03:15] VITALS: BP 132/82; TEMP 97.8
[2019-03-28] MEDS ORDERED: DILAUDID 1 MG/ML SYRINGE IVP STA ×2 (03:30→04:50)
[2019-03-28] MEDS ORDERED: LACTATED RINGERS 1,000 ML IV STA ×2 (03:30→03:51)
[2019-03-28] MEDS ORDERED: ZOFRAN 4 MG/2 ML IVP STA (03:30)
--- NOTE | 2019-03-28 03:34 | ED.PDOC ---
General ED Provider: Dr. CATHERINE SALDANA Chief Complaint: Abdominal Pain Stated Complaint: Diarrhea off and On for one week, had gotten better with Lomotil after she was seen here for the same complaints. Symptoms started back again last night with 4 diarrhea stools associated with mid Abdominal Cramping and Nausea. Has had a hysterectomy and cholecystectomy. Time Seen by Physician: 03:20 Mode of Arrival: Walk-In Information Source: Patient, Family Exam Limitations: No limitations Primary Care Provider: ALISIA AVILES Seen Within Last 72 Hours for Same Complaint By: ED Nursing and Triage Documentation Reviewed and Agree: No Does patient meet sepsis criteria?: Yes If yes, has appropriate treatment been initiated?: No System Inflammatory Response Syndrome: Not Applicable Sepsis Protocol: For patient's 13 years and over: Temp is 96.8 and below OR 101 and greater Pulse >90 BPM Resp >20/minute Acutely Altered Mental Status Are patient's symptoms suggestive of a new infection, such as: -Pneumonia -Skin, Soft Tissue -Endocarditis -UTI -Bone, Joint Infection -Implantable Device -Acute Abdominal Infection -Wound Infection -Meningitis -Blood Stream Catheter Infection -Unknown GI Complaint Exam - Abdominal Pain Complaint/Exam Onset: Gradual Duration: 1 week Symptoms Are: Still present Timing: Intermittent Initial Severity: Moderate Current Severity: Severe Location of Pain: Diffuse Radiates To: Denies: Chest, Back, Flank, LLQ, RLQ, Inguinal Character: Reports: Cramping Aggravating: Reports: Movement Alleviating: Reports: Medication Associated Signs and Symptoms: Reports: Nausea, Vomiting, Diarrhea. Denies: Diaphoresis, Fever, Cough, Chest pain, Dizziness, Back pain, Constipation, Blood in stool, Dysuria, Urinary frequency, Decreased urine output, Decreased appetite, Vaginal bleeding, Vaginal discharge, Sore throat, Decreased activity Related History: Reports: Similar episode (was seen for same last week here in the ER) [employer] History: Denies: Ectopic, Ovarian cyst, PID AAA Risk Factors: Reports: None Cardiac Risk Factors: Reports: None Ectopic Risk Factors: Denies: None Ovarian Torsion Risk Factors: Reports: Hysterectomy Surgical Obstruction Risk Factors: Reports: Prior abdominal surgery Related Surgical History: Reports: Cholecystectomy, TIARA Patient Rh Status: Unknown Abdominal Findings: Present: Other (Diffuse abdominal tenderness to palpation) Differential Diagnoses: Appendicitis, Gastroenteritis, UTI Review of Systems - Review Of Systems Constitutional: Reports: No symptoms Eyes: Reports: No symptoms Ears, Nose, Mouth, Throat: Reports: No symptoms Respiratory: Reports: No symptoms Cardiac: Reports: No symptoms GI: Reports: Abdominal pain, Diarrhea, Nausea, Poor appetite, Vomiting : Reports: No symptoms Musculoskeletal: Reports: No symptoms Skin: Reports: No symptoms Neurological: Reports: Anxiety Endocrine: Reports: No symptoms Hematologic/Lymphatic: Reports: No symptoms All Other Systems: Reviewed and Negative Past Medical History - Past Medical History Previously Healthy: No Endocrine: Reports: None Cardiovascular: Reports: Hypertension Respiratory: Reports: None Hematological: Reports: None Gastrointestinal: Reports: None Genitourinary: Reports: None 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) Musculoskeletal: Reports: None Cancer: Reports: None Last Menstrual Period: none - Surgical History General Surgical History: Reports: Cholecystectomy - Family History Family History: Reports: Unknown - Social History Smoking Status: Current every day smoker, Heavy tobacco smoker Hx Substance Use: No Alcohol Screening: None - Immunizations Tetanus Shot up to Date: Yes Physical Exam - Physical Exam Appearance: Ill-appearing, Obese Ill-appearing: Moderate Pain Distress: Moderate Eyes: VIKTOR, EOMI Neck: Supple Respiratory: Airway patent, Breath sounds clear, Breath sounds equal, Respirations nonlabored Cardiovascular: Pulses normal, Tachycardia GI/: Soft, Tender (Diffuse) Musculoskeletal: Normal strength, ROM intact, No edema, No calf tenderness Skin: Warm, Dry, Normal color Neurological: Motor intact, Alert, Oriented Psychiatric: Anxious Interpretation - Radiology Interpretation Radiology Interpretation By: Radiologist Radiology Results: No acute changes Exam Interpreted: CT Scan Critical Care Note - Critical Care Note Total Time (mins): 35 Course - Course Hematology/Chemistry: 03/28/19 03:35 03/28/19 03:35 Orders, Labs, Meds: Lab Review 03/28/19 03/28/19 03/28/19 03:35 03:35 04:50 WBC 16.45 H RBC 4.80 Hgb 14.9 Hct 45.1 MCV 94.0 MCH 31.0 MCHC 33.0 RDW Coeff of Nilo 13.3 Plt Count 202 Immature Gran % (Auto) 0.6 Neut % (Auto) 79.0 Lymph % (Auto) 12.6 [place] % (Auto) 6.6 Eos % (Auto) 1.0 Baso % (Auto) 0.2 Immature Gran # (Auto) 0.1 Neut # (Auto) 13.0 H Lymph # (Auto) 2.1 [place] # (Auto) 1.1 Eos # (Auto) 0.2 Baso # (Auto) 0.0 Sodium 138.3 Potassium 3.96 Chloride 107.1 H Carbon Dioxide 23.0 Anion Gap 12.16 BUN 16.5 Creatinine 1.31 H Estimated GFR (MDRD) 45.00 BUN/Creatinine Ratio 12.59 Glucose 134.2 H Calcium 9.15 Total Bilirubin 0.57 AST 29.9 ALT 20.9 Alkaline Phosphatase 57.6 Total Protein 7.68 Albumin 4.32 Globulin 3.36 Albumin/Globulin Ratio 1.28 Amylase 102.0 Lipase 73.2 Urine Color Yellow Urine Clarity Clear Urine pH 6.0 Ur Specific Rupert 1.015 Urine Protein Trace Urine Glucose (UA) Negative Urine Ketones Negative Urine Blood 2+ Urine Nitrite Negative Urine Bilirubin Negative Urine Urobilinogen 0.2 Ur Leukocyte Esterase Negative Urine Microscopic RBC 2-5 Urine Microscopic WBC 0-2 Ur Squamous Epith Cells 5-10 Urine Bacteria Trace Orders Category Date Time Status C-DIFF MONITORING (NURSING) BID CARE 03/28/19 03:41 Active NPO REMINDER: IMAGING ONCE CARE 03/28/19 03:36 Completed ED IV/MEDIPORT/POWERPORT .ONCE EMERGENCY 03/28/19 03:30 Active AMYLASE Stat LAB 03/28/19 03:35 Completed CBC W/ AUTO DIFF Stat LAB 03/28/19 03:35 Completed COMPREHENSIVE METABOLIC PANEL Stat LAB 03/28/19 03:35 Completed FECAL LEUKOCYTES Stat LAB 03/28/19 04:40 Completed LIPASE Stat LAB 03/28/19 03:35 Completed STOOL CULTURE Stat LAB 03/28/19 04:40 Completed URINALYSIS C & S IF INDICATED Stat LAB 03/28/19 04:50 Completed cdiff [C. DIFFICILE] Routine LAB 03/28/19 04:40 Completed 0.9 % Sodium Chloride [Saline Flush] MEDS 03/28/19 03:30 Discontinued 1 syr IVF PRN PRN Dicyclomine HCl [Bentyl] MEDS 03/28/19 03:49 Discontinued 20 mg PO ONCE STA Diphenoxylate HCl/Atropine [Lomotil] MEDS 03/28/19 03:38 Discontinued 2 tab PO ONCE STA Hydromorphone HCl [Dilaudid 1 mg/ml Syringe] MEDS 03/28/19 03:30 Discontinued 1 mg IVP ONCE STA Hydromorphone HCl [Dilaudid 1 mg/ml Syringe] MEDS 03/28/19 04:50 Discontinued 1 mg IVP ONCE STA Ondansetron HCl/Pf [Zofran 4 mg/2 ml] MEDS 03/28/19 03:30 Discontinued 4 mg IVP ONCE STA Potassium Chloride [K-Dur] MEDS 03/28/19 03:44 Discontinued 20 meq PO ONCE STA Promethazine HCl [Phenergan 25 mg/ml Vial] MEDS 03/28/19 04:23 Discontinued 25 mg .ROUTE .STK-MED ONE Promethazine HCl [Phenergan 25 mg/ml Vial] 25 mg MEDS 03/28/19 04:19 Discontinued 0.9 % Sodium Chloride [Sodium Chloride] 50 ml IV ONCE Ringers Lactated Solution [Lactated Ringers] 1,000 ml MEDS 03/28/19 03:30 Discontinued IV BOLUS Ringers Lactated Solution [Lactated Ringers] 1,000 ml MEDS 03/28/19 03:[address] ABDOMEN/PELVIS W CONTRAST Stat RADS 03/28/19 03:36 Completed Medications Discontinued Medications Generic Name Dose Route Start Last Admin Trade Name Freq PRN Reason Stop Dose Admin Dicyclomine HCl 20 mg 03/28/19 03:49 03/28/19 04:12 Bentyl PO 03/28/19 03:50 20 mg ONCE STA Administration Diphenoxylate HCl/Atropine 2 tab 03/28/19 03:38 03/28/19 04:11 Lomotil PO 03/28/19 03:39 2 tab ONCE STA Administration Hydromorphone HCl 1 mg 03/28/19 03:30 03/28/19 03:41 Dilaudid 1 Mg/Ml Syringe IVP 03/28/19 03:31 1 mg ONCE STA Administration Hydromorphone HCl 1 mg 03/28/19 04:50 03/28/19 04:54 Dilaudid 1 Mg/Ml Syringe IVP 03/28/19 04:51 1 mg ONCE STA Administration Lactated Ringer's 1,000 mls @ 1,000 mls/hr 03/28/19 03:30 03/28/19 03:41 Lactated Ringers IV 03/28/19 04:29 1,000 mls/hr BOLUS STA Administration Lactated Ringer's 1,000 mls @ 1,000 mls/hr 03/28/19 03:51 03/28/19 05:43 Lactated Ringers IV 03/28/19 04:50 1,000 mls/hr BOLUS STA Administration Promethazine HCl 25 mg/ Sodium 51 mls @ 75 mls/hr 03/28/19 04:19 03/28/19 04: 25 Chloride IV 03/28/19 04:59 75 mls/hr ONCE STA Administration Ondansetron HCl 4 mg 03/28/19 03:30 03/28/19 03:41 Zofran 4 Mg/2 Ml IVP 03/28/19 03:31 4 mg ONCE STA Administration Potassium Chloride 20 meq 03/28/19 03:44 03/28/19 04:12 K-Dur PO 03/28/19 03:45 20 meq ONCE STA Administration Sodium Chloride 1 syr 03/28/19 03:30 03/28/19 04:12 Saline Flush IVF 1 syr PRN PRN Administration To flush IV Vital Signs: Temp Pulse Resp BP Pulse Ox 03/28/19 03:11 97.8 F 108 H 20 132/82 98 Departure - Departure Time of Disposition: 06:30 Disposition: HOME SELF-CARE Discharge Problem: Gastroenteritis and colitis, viral Instructions: Gastroenteritis (ED), Colitis (ED) Condition: Stable Pt referred to PMD for follow-up: Yes IPMP verified?: No Additional Instructions: Push fluids Take Medications as needed for diarrhea and cramping. Follow up with PCP in 3 days Prescriptions: Hydrocodone Bit/Acetaminophen [Erie 5-325] 1 each PO Q6HR PRN #20 tablet PRN Reason: severe pain Dicyclomine HCl [Bentyl] 10 mg PO TID PRN #20 capsule PRN Reason: Abdominal Pain Diphenoxylate HCl/Atropine [Lomotil 2.5-0.025 mg Tablet] 1 each PO TID PRN #20 tablet PRN Reason: Diarrhea Ondansetron [Zofran Odt] 4 mg PO Q8H #20 tab.rapdis Allergies/Adverse Reactions: Allergies codeine Adverse Reaction (Intermediate, Verified 03/28/19 03:14) Nausea steroids Adverse Reaction (Mild, Uncoded 03/28/19 03:14) neuro told pt not to take due to paplademia Home Medications: Ambulatory Orders Metoprolol Tartrate [Lopressor] 50 mg PO BID 03/21/19 Dicyclomine HCl [Bentyl] 10 mg PO TID PRN #20 capsule 03/28/19 Diphenoxylate HCl/Atropine [Lomotil 2.5-0.025 mg Tablet] 1 each PO TID PRN #20 tablet 03/28/19 Hydrocodone Bit/Acetaminophen [[place] 5-325] 1 each PO Q6HR PRN #20 tablet Ondansetron [Zofran Odt] 4 mg PO Q8H #20 tab.rapdis 03/28/19 Disposition Discussed With: Patient, Family
[2019-03-28] MEDS ORDERED: LOMOTIL PO STA (03:38)
[2019-03-28] MEDS ORDERED: K-DUR PO STA (03:44)
[2019-03-28] MEDS ORDERED: BENTYL PO STA (03:49)
[2019-03-28] MEDS ORDERED: PHENERGAN 25 MG/ML VIAL 25 MG in SODIUM CHLORIDE 50 ML IV STA (04:19)
[2019-03-28] MEDS ORDERED: PHENERGAN 25 MG/ML VIAL ONE (04:23)
--- NOTE | 2019-03-28 04:45 | CT ---
EXAM: CT scan abdomen pelvis with contrast HISTORY: Abdominal pain with diarrhea COMPARISON: CT scan abdomen pelvis 03/21/2019 FINDINGS: Contiguous axial images obtained through the abdomen pelvis following intravenous contrast utilize 3-mm collimation. Sagittal and coronal reconstructions were imaged and reviewed.. The visu alized lung bases are clear. There has been prior cholecystectomy. The liver, pancreas and spleen h ave normal enhanced CT appearance. Mild atherosclerotic changes are seen involving the aorta without aneurysm formation. There is normal appendix. The kidneys excrete contrast in a normal fashion christos aterally. Redemonstrated are bilateral adrenal nodules measuring 2.0 on the right and 1.8 on the lef t suggestive of adrenal adenomas. There is minimal diverticulosis without diverticulitis. There has been prior hysterectomy. There is no free fluid or inflammatory changes.. Bone windows reveals no evidence of lytic or blastic lesions. IMPRESSION: No acute intra-abdominal findings. Status post cholecystectomy and hysterectomy. Small likely bilateral adrenal adenomas. Minimal diverticulosis without diverticulitis
== END 2019-03-28 06:33 | disposition home or self-care (01) ==
LOC: ED 03:11
DX: A08.4 Viral intestinal infection, unspecified (principal); F17.210 Nicotine dependence, cigarettes, uncomplicated
CPT/HCPCS: 36415; 80053; 81001; 82150; 83690; 85025; 87015; 87045; 87493; 87899; 89055; 96361; 96365; 96375; 96376; 99283

== ENCOUNTER 2023-10-30 22:07 | Observation (INO) ==
--- NOTE | 2023-10-30 22:25 | ED.PDOC ---
General ED Provider: Dr. JOCELYNN BAKER DO Chief Complaint: Shortness of Air Stated Complaint: Patient is a 43 yo F here for sob x 1 week She arrives afebrile and vitally stable by POV Speaking in full sentences on room air spo2 98% She smokes 1 PPD No hx of ACS, VTE of CVA No hormone therapy No hx of cancer PSH: Partial hysterctomy for endometriosis Patietn denies hemoptysis, cehst pain or chest pressure patietn stable SO at bedside No falls or injuires Time Seen by Provider: 10/30/23 22:17 Information Source: Patient Primary Care Provider: ARLYN BRYAN APRN Nursing and Triage Documentation Reviewed and Agree: Yes What is Opioid Naive?: *Opioid Naive implies the patient is not already taking opioids or not chronically receiving opioids on a daily basis. *PRN dosing is not "usually" associated with tolerance. *Patients are at higher risk of over-sedation and aspiration. What is Opioid Tolerant?: *Opioid Tolerance implies less than the expected response to an opioid. *Acquired tolerance is defined by the patient taking 60mg of oral morphine daily (or equianalgesic dose of another opioid) for 1 week or more. *Often associated with chronic pain. *May take more than usual dose to achieve desired pain control. Review of Systems Review Of Systems Constitutional: Denies Chills, Fever or Weakness Eyes: Denies Blindness or Vision change Ears, Nose, Mouth, Throat: Denies Ear pain, Nose pain or Throat pain Respiratory: Reports Cough and Shortness of Breath; Denies Wheezing Cardiac: Denies Chest pain, Palpitations or Syncope GI: Denies Abdominal pain, Constipated or Diarrhea : Denies Burning, Dysuria or Discharge Musculoskeletal: Denies Back pain or Joint pain Skin: Denies Bruising or Dryness Neurological: Reports No symptoms Endocrine: Reports No symptoms Hematologic/Lymphatic: Reports No symptoms All Other Systems: Reviewed and Negative [facility] Medical History Ileitis K52.9 - Noninfective gastroenteritis and colitis, unspecified (ICD-10) Hypokalemia E87.6 - Hypokalemia (ICD-10) Obesity E66.9 - Obesity, unspecified (ICD-10) Irritable bowel syndrome K58.9 - Irritable bowel syndrome without diarrhea (ICD-10) Raynaud disease I73.00 - Raynaud's syndrome without gangrene (ICD-10) Urinary incontinence R32 - Unspecified urinary incontinence (ICD-10) Fatigue R53.83 - Other fatigue (ICD-10) Family History Mother Hypertension FATHER Depression Hypertension BROTHER Hypertension Other DJD (degenerative joint disease) Social History Smoking and tobacco status: Current every day smoker Tobacco: How many years used: 30 Quit status: considering quitting Second hand smoke exposure: Yes Alcohol intake: current Substance use type: marijuana Counseling given: No Corie/baptism: Mosque Special corie needs: No Agree to transfusion: Yes Adopted: No Caregiver/support person: Yes Foster care: No Household members: family Housing: house Lives independently: Yes Highest education level completed: 11th grade Financial difficulty paying for basics: not applicable service: No Current occupational status: employed Current occupation: Childcare provider Current occupational exposures/hazards: Yes Pets and animals: Yes Leisure activites: reading History of recent travel: No Sexually active: Yes Do you think of yourself as: straight/heterosexual Current gender identity: female Seatbelt use: always Helmet use: No Drives intoxicated or rides with intoxicated restaurant delivery driver: No Water heater temperature set < 120 degrees: Yes Working smoke detector in home: Yes Fire extinguisher in home: Yes Carbon monoxide detector in home: Yes Firearms in home: No Surgical History History of tubal ligation (~2006) Z98.51 - Tubal ligation status (ICD-10) Status post tonsillectomy Z90.89 - Acquired absence of other organs (ICD-10) Status post cholecystectomy (~1996) Z90.49 - Acquired absence of other specified parts of digestive tract (ICD- 10) Female Reproductive History Menstrual Hx Hysterectomy: Yes Hx Tubal Ligation: No Physical Exam Physical Exam Appearance: Reports Well-appearing, Well-nourished and Obese Ill-appearing: Not Applicable Pain Distress: Not Applicable Eyes: Reports VIKTOR, EOMI and Conjunctiva clear ENT: Reports Ears normal, Nose normal and Oropharynx normal Neck: Supple Respiratory: Reports Airway patent and Breath sounds clear; Denies Airway obstructed, Crackles, Rhonchi, Wheezes or Retractions Cardiovascular: Reports RRR and Pulses normal GI/: Reports Soft and Nontender Musculoskeletal: Reports Normal strength and ROM intact Skin: Reports Warm and Dry Neurological: Reports Sensation intact and Motor intact Psychiatric: Reports Affect appropriate and Mood appropriate Interpretation EKG Interpretation EKG Interpretation By: ED Physician Time of EKG #1: 22:45 Interpretation: NSR rate 62 no stemi QRS qt wnl Course Course 11/01/23 05:25 11/01/23 05:25 Orders, Labs, Meds: Lab Review 10/30/23 10/30/23 10/30/23 22:29 22:40 23:39 WBC 11.77 H RBC 4.48 Hgb 13.6 Hct 42.6 MCV 95.1 MCH 30.4 MCHC 31.9 RDW Coeff of Nilo 13.3 Plt Count 203 Immature Gran % (Auto) 0.3 Neut % (Auto) 67.6 Lymph % (Auto) 24.7 [place]xton % (Auto) 7.1 Eos % (Auto) 0.0 Baso % (Auto) 0.3 Neut # (Auto) 8.0 H Lymph # (Auto) 2.9 [place] # (Auto) 0.8 Eos # (Auto) 0.0 Baso # (Auto) 0.0 Immature Gran # (Auto) 0.0 Sodium 138.1 Potassium 3.59 Chloride 105.8 Carbon Dioxide 29.9 Anion Gap 5.99 BUN 14.3 Creatinine 1.24 Estimated GFR (MDRD) 47.00 BUN/Creatinine Ratio 11.53 Glucose 103.0 Lactic Acid 0.98 Calcium 8.79 Total Bilirubin 0.37 AST 21.7 ALT 15.1 Alkaline Phosphatase 56.6 Troponin I 0.018 0.016 Total Protein 7.06 Albumin 3.80 Globulin 3.26 Albumin/Globulin Ratio 1.16 Influ A Molecular Assay Negative by naat Influ B Molecular Assay Negative by naat RSV Antigen Negative by naat SARS CoV-2 RNA Rapid LIANA Negative Orders Category Date Time Status OBSERVATION [PLACE PATIENT OBSERVATION] .TO [facility] ADMISSION 10/31/23 06:46 Active (MONITORED BED) EKG-(ED ONLY) Stat CARDIO 10/30/23 22:22 Completed NPO REMINDER: IMAGING ONCE CARE 10/30/23 23:35 Completed TELEMETRY MONITORING TELE CARE 10/31/23 06:46 Active ED APPLY O2 .ONCE EMERGENCY 10/30/23 22:22 Active ED CASH ROOM CLERK APPLIED .ONCE EMERGENCY 10/30/23 22:22 Active CBC W/ AUTO DIFF Stat LAB 10/30/23 22:29 Completed COMPREHENSIVE METABOLIC PANEL Stat LAB 10/30/23 22:29 Completed FLU A/B MOLECULAR Stat LAB 10/30/23 22:40 Completed LACTIC ACID Stat LAB 10/30/23 22:29 Completed RSV Stat LAB 10/30/23 22:40 Completed SARS COV-2 RNA RAPID LIANA Stat LAB 10/30/23 22:40 Completed TROPONIN I Stat LAB 10/30/23 22:29 Completed TROPONIN I Stat LAB 10/30/23 23:39 Completed Acetaminophen Meds 10/31/23 01:04 Discontinued 1,000 mg in 100 ml IV ONCE Aspirin [Aspirin Chewable] Meds 10/30/23 23:39 Discontinued 324 mg PO ONCE ONE Ondansetron HCl/Pf [Zofran 4 mg/2 ml] Meds 10/31/23 01:04 Discontinued 4 mg IVP ONCE ONE CHEST, 2 VIEWS PA & LAT Stat RADS 10/30/23 22:[address] CHEST PE PROTOCOL Stat RADS 10/31/23 00:05 Completed Medications Generic Name Dose Route Start Last Admin Trade Name Freq PRN Reason Stop Dose Admin Acetaminophen 650 mg 10/31/23 08:57 10/31/23 09:27 Acetaminophen 325 Mg Tablet PO 650 mg Q4H PRN Administration Mild Pain Amlodipine Besylate 5 mg 10/31/23 21:00 10/31/23 20:25 Amlodipine Besylate 5 Mg Tablet PO 5 mg BEDTIME [place] Administration Aripiprazole 5 mg 10/31/23 21:00 10/31/23 20:25 Aripiprazole 5 Mg Tablet PO 5 mg BEDTIME [place] Administration Diazepam 5 mg 10/31/23 09:41 10/31/23 20:35 Diazepam 5 Mg Tablet PO 5 mg TID PRN Administration Vertigo Hydrochlorothiazide 25 mg 11/01/23 09:00 Hydrochlorothiazide 25 Mg Tablet PO DAILY [place] Ketorolac Tromethamine 15 mg 10/31/23 09:15 11/01/23 05:48 Ketorolac Tromethamine 15 Mg/Ml Vial IVP 11/04/23 09:15 15 mg Q6HR PRN Administration MODERATE PAIN Lovastatin 20 mg 10/31/23 21:00 10/31/23 20:25 Lovastatin 20 Mg Tablet PO 20 mg BEDTIME [place] Administration Metoprolol Tartrate 25 mg 10/31/23 10:00 10/31/23 20:25 Metoprolol Tartrate 25 Mg Tablet PO 25 mg BID [place] Administration Nicotine 1 patch 10/31/23 10:00 10/31/23 10:07 Nicotine 14 Mg Patch.Td24 TD 1 patch DAILY [place] Administration Non-Formulary Medication 200 mg 11/01/23 09:00 Lamotrigine [Lamictal] PO DAILY [place] Ondansetron HCl 4 mg 10/31/23 08:57 10/31/23 09:27 Ondansetron Hcl/Pf 4 Mg/2 Ml Sdv IVP 4 mg Q6H PRN Administration Nausea / Vomiting Pantoprazole Sodium 40 mg 11/01/23 06:00 11/01/23 05:46 Pantoprazole Sodium 40 Mg Tablet.Dr PO 40 mg QDAC2 [place] Administration Sodium Chloride 1 syr 10/31/23 21:00 11/01/23 05:46 0.9% Sodium Chloride 10 Ml Disp.Syrin IVF 1 syr Q8HR [place] Administration Trazodone HCl 150 mg 10/31/23 21:00 10/31/23 20:25 Trazodone Hcl 50 Mg Tablet PO 150 mg BEDTIME [place] Administration Discontinued Medications Generic Name Dose Route Start Last Admin Trade Name Freq PRN Reason Stop Dose Admin Aspirin 324 mg 10/30/23 23:39 10/30/23 23:52 Aspirin 81 Mg Tab.Chew PO 10/30/23 23:40 324 mg ONCE ONE Administration Acetaminophen 1,000 mg in 100 mls @ 400 mls/hr 10/31/23 01:04 10/31/23 01:14 Acetaminophen IV 10/31/23 01:18 400 mls/hr ONCE ONE Administration Non-Formulary Medication 200 mg 10/31/23 21:00 10/31/23 21:33 Lamotrigine PO 200 mg BEDTIME [place] Administration Ondansetron HCl 4 mg 10/31/23 01:04 10/31/23 01:14 Ondansetron Hcl/Pf 4 Mg/2 Ml Sdv IVP 10/31/23 01:05 4 mg ONCE ONE Administration Vital Signs: Temp Pulse Resp BP Pulse Ox O2 Flow Rate 10/31/23 06:16 62 22 H 108/62 92 L 10/30/23 22:45 2 10/30/23 22:17 97.1 F L 70 24 H 162/89 H 98 PERC negative, but with non zero but non positive trop will order delta troponin and CT pe study Hospitalist paged for chest pain observation stay MDM: Patient is a 43 yo F here for SOB Hx from patient chart review by me Exam reassuring 3+ labs and 3 image results reviewed by me I consulted hospitalist for admission to trend non zero non positive troponins, and further work up WDX: Sob, nonzero troponin acute moderate complexity DDX: I considered stemi, PE, sepsis but these were not found SDOH: Patient has PCP and family support Patient agrees with observation, all questions answered Discharge Plan Discharge Patient Disposition: PLACED OBSERVATION Discharge Problem: Acute dyspnea, Chest pain, rule out acute myocardial infarction Did you review [place] STAFFING EXECUTIVE for ALL controlled substances?: Not Applicable ED Provider: JOCELYNN BAKER Condition: Stable Physician Progress Note: []
[2023-10-30 22:34] LABS: BASOPHILS % (AUTO) 0.3 % (0.0-3.0); HEMATOCRIT 42.6 % (37.0-47.0); HEMOGLOBIN 13.6 g/dl (12.0-16.0); IMMATURE GRANULOCYTE % (AUTO) 0.3 % (0.0-5.0); LYMPHOCYTES # (AUTO) 2.9 K/uL (0.60-3.4); LYMPHOCYTES % (AUTO) 24.7 (10.0-50.0); MEAN CORPUSCULAR HEMOGLOBIN 30.4 pg (27.0-31.0); MEAN CORPUSCULAR HGB CONC 31.9 (31.8-35.4); MEAN CORPUSCULAR VOLUME 95.1 fl (81.0-99.0); MONOCYTES # (AUTO) 0.8 K/uL (0.4-2.0); MONOCYTES % (AUTO) 7.1 (0-10); NEUTROPHILS % (AUTO) 67.6 % (42.2-75.2); PLATELET COUNT 203 10^3/uL (140-440); RDW COEFFICIENT OF VARIATION 13.3 % (11.6-14.8); RED BLOOD COUNT 4.48 10^6/ul (4.20-5.40); WHITE BLOOD COUNT 11.77 K/ul (4.6-10.2)
[2023-10-30 22:59] LABS: ALANINE AMINOTRANSFERASE 15.1 U/L (0-35); ALBUMIN 3.8 g/dL (3.5-5.0); ALKALINE PHOSPHATASE 56.6 U/L (38-126); ASPARTATE AMINO TRANSFERASE 21.7 U/L (14-36); BILIRUBIN,TOTAL 0.37 mg/dL (0.2-1.3); BLOOD UREA NITROGEN 14.3 mg/dL (7-17); CALCIUM 8.79 mg/dL (8.4-10.2); CARBON DIOXIDE 29.9 mmol/L (22-30.0); CHLORIDE 105.8 mmol/L (98-107); CREATININE 1.24 mg/dL (0.60-1.30); POTASSIUM 3.59 mmol/L (3.5-5.1); SODIUM 138.1 mmol/L (134.5-145); TOTAL PROTEIN 7.06 g/dL (6.3-8.2)
--- NOTE | 2023-10-30 23:01 | DI ---
EXAM: FRONTAL AND LATERAL VIEWS OF THE CHEST. HISTORY: Shortness of breath. COMPARISON: Chest radiograph 06/27/2023. FINDINGS: Post cholecystectomy. Normal heart size. No acute consolidation. No pleural effusion or pneumothorax. No acute osseous abnormality. IMPRESSION: No acute process.
[2023-10-30 23:03] LABS: MOLECULAR FLU A NEGATIVE BY NAAT (NEGATIVE); MOLECULAR FLU B NEGATIVE BY NAAT (NEGATIVE); RSV MOLECULAR NEGATIVE BY NAAT (NEGATIVE); SARS COV-2 RNA RAPID NAAT NEGATIVE (NEGATIVE)
[2023-10-30 23:10] LABS: TROPONIN I 0.018 ng/ml (0.0000-0.120)
[2023-10-30] MEDS: ASPIRIN CHEWABLE PO ONE (23:52)
--- NOTE | 2023-10-31 00:54 | CT ---
EXAM: CT ANGIOGRAPHY OF THE CHEST History: Shortness of breath Technique: 1.[address] of the chest utilizing CT angiography protocol. Multiplanar and maximum intensity projection reformations were performed. FINDINGS: Technically adequate for evaluation of pulmonary arteries and aorta. There are no pulmona ry artery filling defects. No pulmonary parenchymal abnormality. Normal heart, great vessels and pe ricardium. No mediastinal lymphadenopathy. No acute chest wall abnormality. No acute findings of t he upper abdomen. Impression: No evidence of pulmonary artery thrombus No acute findings of the chest All CT scans are performed using dose optimization techniques as appropriate to the performed exam an d include at least one of the following: Automated exposure control, adjustment of the mA and/or kV according t o size, and the use of iterative reconstruction technique.
[2023-10-31] MEDS: ACETAMINOPHEN 1,000 MG/100 ML BAG IV ONE (01:14)
[2023-10-31] MEDS: ZOFRAN 4 MG/2 ML IVP ONE (01:14)
[2023-10-31 09:07] VITALS: BMI 53.5
[2023-10-31 09:13] LABS: BASOPHILS % (AUTO) 0.3 % (0.0-3.0); HEMATOCRIT 38.7 % (37.0-47.0); HEMOGLOBIN 12.6 g/dl (12.0-16.0); IMMATURE GRANULOCYTE % (AUTO) 0.3 % (0.0-5.0); LYMPHOCYTES # (AUTO) 1.8 K/uL (0.60-3.4); LYMPHOCYTES % (AUTO) 24.1 (10.0-50.0); MEAN CORPUSCULAR HGB CONC 32.6 (31.8-35.4); MEAN CORPUSCULAR VOLUME 95.1 fl (81.0-99.0); MONOCYTES # (AUTO) 0.6 K/uL (0.4-2.0); MONOCYTES % (AUTO) 7.9 (0-10); NEUTROPHILS # (AUTO) 5.1 K/ul (2.0-6.9); NEUTROPHILS % (AUTO) 67.4 % (42.2-75.2); PLATELET COUNT 180 10^3/uL (140-440); RDW COEFFICIENT OF VARIATION 13.3 % (11.6-14.8); RED BLOOD COUNT 4.07 10^6/ul (4.20-5.40); WHITE BLOOD COUNT 7.51 K/ul (4.6-10.2)
[2023-10-31] MEDS: TORADOL IVP PRN (09:27)
[2023-10-31] MEDS: TYLENOL PO PRN (09:27)
[2023-10-31] MEDS: ZOFRAN 4 MG/2 ML IVP PRN (09:27)
[2023-10-31 09:37] LABS: ALANINE AMINOTRANSFERASE 14.7 U/L (0-35); ALBUMIN 3.47 g/dL (3.5-5.0); ALKALINE PHOSPHATASE 52.4 U/L (38-126); ASPARTATE AMINO TRANSFERASE 24.1 U/L (14-36); BILIRUBIN,TOTAL 0.41 mg/dL (0.2-1.3); BLOOD UREA NITROGEN 14.5 mg/dL (7-17); CALCIUM 8.38 mg/dL (8.4-10.2); CARBON DIOXIDE 30.9 mmol/L (22-30.0); CHLORIDE 104.8 mmol/L (98-107); GLUCOSE 107.2 mg/dL (74-106); MAGNESIUM 2.07 mg/dL (1.6-2.3); POTASSIUM 3.94 mmol/L (3.5-5.1); SODIUM 136.4 mmol/L (134.5-145)
[2023-10-31 09:53] LABS: TROPONIN I < 0.012 ng/ml (0.0000-0.120)
[2023-10-31] MEDS: LOPRESSOR PO SCH (10:07)
[2023-10-31] MEDS: NICODERM 14 MG TD SCH (10:07)
--- NOTE | 2023-10-31 10:30 | PCM ---
Date of Service Date Seen by Provider: 10/31/23 Time Seen by Provider: 09:00 Admit Day/Time Admission Date: 10/31/23 Admission Time: 06:46 Reason for Admission Chief Complaint: ACUTE DYSPNEA Hospital Provider Hospital Provider: OPAL HERRING PA-C, [facility] [place] Primary Care Physician Primary Care Physician: ARLYN BRYAN APRN History of Present Illness History of Present Illness: Patient is a 43 year old female with pmhx of JACQUI, hypertension, CKD, GERD, anxiety/depression, hyperlipidemia, hx of papilledema, who presented to ER with worsening SOB since yesterday. She has an associated cough. She complains of pain in her upper back that is worse with inspiration. CTA chest was negative. Trops were negative, but not quite undetectable. No recent echo. BNP mildly elevated. Flu, rsv, and covid negative. No hx of cardiac disease per patient. Denies any anterior chest pain. Pt admitted for cardiac r/o. Case Discussed With Case Discussed With: Patient's case was discussed with the ER Physicians, Dr. Weathers. [facility] Medical History Ileitis K52.9 - Noninfective gastroenteritis and colitis, unspecified (ICD-10) Hypokalemia E87.6 - Hypokalemia (ICD-10) Obesity E66.9 - Obesity, unspecified (ICD-10) Irritable bowel syndrome K58.9 - Irritable bowel syndrome without diarrhea (ICD-10) Raynaud disease I73.00 - Raynaud's syndrome without gangrene (ICD-10) Urinary incontinence R32 - Unspecified urinary incontinence (ICD-10) Fatigue R53.83 - Other fatigue (ICD-10) Surgical History History of tubal ligation (~2006) Z98.51 - Tubal ligation status (ICD-10) Status post tonsillectomy Z90.89 - Acquired absence of other organs (ICD-10) Status post cholecystectomy (~1996) Z90.49 - Acquired absence of other specified parts of digestive tract (ICD- 10) Family History Mother Hypertension FATHER Depression Hypertension BROTHER Hypertension Other DJD (degenerative joint disease) Social History Smoking and tobacco status: Current every day smoker Tobacco: How many years used: 30 Quit status: considering quitting Second hand smoke exposure: Yes Alcohol intake: current Substance use type: marijuana Counseling given: No Corie/congregational: Mandaen Special corie needs: No Agree to transfusion: Yes Adopted: No Caregiver/support person: Yes Foster care: No Household members: family Housing: house Lives independently: Yes Highest education level completed: 11th grade Financial difficulty paying for basics: not applicable service: No Current occupational status: employed Current occupation: Childcare provider Current occupational exposures/hazards: Yes Pets and animals: Yes Leisure activites: reading History of recent travel: No Sexually active: Yes Do you think of yourself as: straight/heterosexual Current gender identity: female Seatbelt use: always Helmet use: No Drives intoxicated or rides with intoxicated contract driver: No Water heater temperature set < 120 degrees: Yes Working smoke detector in home: Yes Fire extinguisher in home: Yes Carbon monoxide detector in home: Yes Firearms in home: No Allergies Allergies Allergy/AdvReac Type Severity Reaction Status Date / Time codeine AdvReac Intermediate Nausea Verified 10/30/23 22:23 lisinopril Allergy Severe Rash Uncoded 10/30/23 22:23 steroids AdvReac Mild neuro told Uncoded 10/30/23 22:23 pt not to take due to paplademia Current Medications Home Medications trazodone 50 mg tablet 150 mg PO QHS 02/17/21 [History Confirmed 10/30/23 Last Taken 09/23/23 21:23] lamotrigine 50 mg tablet,extended release 24 hr 200 mg PO BEDTIME 07/29/22 [History Confirmed 10/31/23 Last Taken 09/23/23 21:22] aripiprazole 15 mg tablet 5 mg PO BEDTIME 12/20/22 [History Confirmed 10/31/23 Last Taken 09/23/23 21:22] hydrochlorothiazide 25 mg tablet 25 mg PO QDAY 90 days #90 tabs 09/01/23 [Rx Confirmed 10/30/23 Last Taken 09/24/23 09:00] lovastatin 20 mg tablet 20 mg PO QHS #30 tabs 09/01/23 [Rx Confirmed 10/30/23 Last Taken 09/23/23 21:23] metoprolol tartrate 25 mg tablet 25 mg PO BID #60 tabs 09/01/23 [Rx Confirmed 10/30/23 Last Taken 09/24/23 09:23] pantoprazole 40 mg tablet,delayed release 40 mg PO QDAY #30 tabs 09/01/23 [Rx Confirmed 10/30/23 Last Taken 09/23/23 21:23] sumatriptan succinate 50 mg tablet See Rx Instructions .Route .COMPLEX #15 tabs 09/01/23 [Rx Confirmed 10/30/23 Last Taken Unknown] diazepam 5 mg tablet 5 mg PO TID PRN vertigo #45 tabs 09/06/23 [Rx Confirmed 10/30/23 Last Taken 09/24/23 16:00] ondansetron 4 mg disintegrating tablet 4 mg PO Q6H PRN nausea and vomiting #10 tabs 09/14/23 [Rx Confirmed 10/30/23 Last Taken Unknown] amlodipine 5 mg tablet 5 mg PO BEDTIME 09/24/23 [History Confirmed 10/31/23 Last Taken 09/23/23 21:00] Home Acetaminophen (Acetaminophen 325 Mg Tablet) 650 mg PO Q4H PRN PRN Reason: Mild Pain Last Admin: 10/31/23 09:27 Dose: 650 mg Amlodipine Besylate (Amlodipine Besylate 5 Mg Tablet) 5 mg PO BEDTIME [place] Aripiprazole (Aripiprazole 5 Mg Tablet) 5 mg PO BEDTIME [place] Diazepam (Diazepam 5 Mg Tablet) 5 mg PO TID PRN PRN Reason: Vertigo Hydrochlorothiazide (Hydrochlorothiazide 25 Mg Tablet) 25 mg PO DAILY [place] Ketorolac Tromethamine (Ketorolac Tromethamine 15 Mg/Ml Vial) 15 mg IVP Q6HR PRN PRN Reason: MODERATE PAIN Stop: 11/04/23 09:15 Last Admin: 10/31/23 09:27 Dose: 15 mg Lovastatin (Lovastatin 20 Mg Tablet) 20 mg PO BEDTIME [facility] Metoprolol Tartrate (Metoprolol Tartrate 25 Mg Tablet) 25 mg PO BID [facility] Last Admin: 10/31/23 10:07 Dose: 25 mg Nicotine (Nicotine 14 Mg Patch.Td24) 1 patch TD DAILY [facility] Last Admin: 10/31/23 10:07 Dose: 1 patch Non-Formulary Medication (Lamotrigine) 200 mg PO BEDTIME [place] Ondansetron HCl (Ondansetron Hcl/Pf 4 Mg/2 Ml Sdv) 4 mg IVP Q6H PRN PRN Reason: Nausea / Vomiting Last Admin: 10/31/23 09:27 Dose: 4 mg Pantoprazole Sodium (Pantoprazole Sodium 40 Mg Tablet.Dr) 40 mg PO QDAC2 [place] Trazodone HCl (Trazodone Hcl 50 Mg Tablet) 150 mg PO BEDTIME [place] Discontinued Medications Aspirin (Aspirin 81 Mg Tab.Chew) 324 mg PO ONCE ONE Stop: 10/30/23 23:40 Last Admin: 10/30/23 23:52 Dose: 324 mg Acetaminophen (Acetaminophen) 1,000 mg in 100 mls @ 400 mls/hr IV ONCE ONE Stop: 10/31/23 01:18 Last Admin: 10/31/23 01:14 Dose: 400 mls/hr Ondansetron HCl (Ondansetron Hcl/Pf 4 Mg/2 Ml Sdv) 4 mg IVP ONCE ONE Stop: 10/31/23 01:05 Last Admin: 10/31/23 01:14 Dose: 4 mg Opioid Naive vs. Tolerant Does Patient Take Opioids?: No Is Patient Opioid Naive?: Yes What is Opioid Naive?: *Opioid Naive implies the patient is not already taking opioids or not chronical ly receiving opioids on a daily basis. *PRN dosing is not "usually" associated with tolerance. *Patients are at higher risk of over-sedation and aspiration. Is Patient Opioid Tolerant?: No What is Opioid Tolerant?: *Opioid Tolerance implies less than the expected response to an opioid. *Acquired tolerance is defined by the patient taking 60mg of oral morphine daily (or equianalgesic dose of another opioid) for 1 week or more. *Often associated with chronic pain. *May take more than usual dose to achieve desired pain control. Review of Systems Constitutional: Denies Fever or Weakness Head: Reports Normocephalic and Atraumatic Throat: Denies Sore Throat or Difficulty Swallowing Cardiovascular: Denies Chest pain, Chest Pressure, Edema or Palpitations Respiratory: Reports Cough and Shortness of air; Denies Wheeze Gastrointestinal: Denies Nausea, Vomiting, Diarrhea, Abdominal pain or Melena Genitourinary: Denies Dysuria or Frequency Dermatologic: Denies Rashes Neurological: Denies Headache, Syncope or Weakness Psychiatric: Reports Depression and Anxiety; Denies Suicidal Physical examination Most Recent Vital Signs: Most Recent Vital Signs Temperature 97.3 F L 10/31/23 08:50 Temperature Source Oral 10/31/23 08:50 Temperature Source Oral 10/30/23 22:17 Pulse Rate 55 L 10/31/23 08:50 Respiratory Rate 17 10/31/23 08:50 Blood Pressure 108/62 10/31/23 06:16 Blood Pressure Right Arm 141/92 10/31/23 08:50 Blood Pressure Position Sitting 10/31/23 08:50 O2 Sat by Pulse Oximetry 96 10/31/23 08:50 Oxygen Delivery Method Nasal Cannula 10/31/23 09:00 Oxygen Flow Rate 2 10/31/23 08:50 Height 5 ft 8 in 10/31/23 08:50 Weight 352 lb 10/31/23 08:50 Telemetry Type Remote Telemetry 10/31/23 09:51 Telemetry Monitoring Started 10/31/23 09:51 Telemetry Heart Rate 59 L 10/31/23 09:51 Telemetry SPO2 99 10/31/23 09:51 EKG GA Interval 0.17 10/31/23 09:51 EKG QRS Interval 0.05 L 10/31/23 09:51 Telemetry Strip Reading SR 10/31/23 09:51 Appearance: Positive No Apparent Distress, Alert and Oriented x3 and Obese Skin: Positive [place], Warm and Good Turgor; Negative Rashes HEENT: Positive Normocephalic and Atraumatic Neck: Positive Supple and Midline Trachea Chest/Lungs: Positive Clear to Auscultation Bilaterally and Other (+pain with deep inspiration ); Negative Rales, Rhonci or Wheezes Heart: Positive RRR GI/: Positive Soft, Nontender and Bowel Sounds Normal Extremities: Negative Edema Neurological: Positive Cranial Nerves Intact, Alert and Oriented Psychiatric: Positive Oriented x4, Appropriate Mood and Appropriate Affect Labs This Visit Labs This Visit: Labs This Visit 10/30/23 10/30/23 10/30/23 22:29 22:40 23:39 WBC 11.77 H RBC 4.48 Hgb 13.6 Hct 42.6 MCV 95.1 MCH 30.4 MCHC 31.9 RDW Coeff of Nilo 13.3 Plt Count 203 Immature Gran % (Auto) 0.3 Neut % (Auto) 67.6 Lymph % (Auto) 24.7 [place] % (Auto) 7.1 Eos % (Auto) 0.0 Baso % (Auto) 0.3 Neut # (Auto) 8.0 H Lymph # (Auto) 2.9 [place] # (Auto) 0.8 Eos # (Auto) 0.0 Baso # (Auto) 0.0 Immature Gran # (Auto) 0.0 Sodium 138.1 Potassium 3.59 Chloride 105.8 Carbon Dioxide 29.9 Anion Gap 5.99 BUN 14.3 Creatinine 1.24 Estimated GFR (MDRD) 47.00 BUN/Creatinine Ratio 11.53 Glucose 103.0 Lactic Acid 0.98 Calcium 8.79 Magnesium Total Bilirubin 0.37 AST 21.7 ALT 15.1 Alkaline Phosphatase 56.6 Troponin I 0.018 0.016 NT-Pro-B Natriuret Pep Total Protein 7.06 Albumin 3.80 Globulin 3.26 Albumin/Globulin Ratio 1.16 TSH Influ A Molecular Assay Negative by naat Influ B Molecular Assay Negative by naat RSV Antigen Negative by naat SARS CoV-2 RNA Rapid LIANA Negative 10/31/23 09:05 WBC 7.51 RBC 4.07 L Hgb 12.6 Hct 38.7 MCV 95.1 MCH 31.0 MCHC 32.6 RDW Coeff of Nilo 13.3 Plt Count 180 Immature Gran % (Auto) 0.3 Neut % (Auto) 67.4 Lymph % (Auto) 24.1 [place] % (Auto) 7.9 Eos % (Auto) 0.0 Baso % (Auto) 0.3 Neut # (Auto) 5.1 Lymph # (Auto) 1.8 [place] # (Auto) 0.6 Eos # (Auto) 0.0 Baso # (Auto) 0.0 Immature Gran # (Auto) 0.0 Sodium 136.4 Potassium 3.94 Chloride 104.8 Carbon Dioxide 30.9 H Anion Gap 4.64 BUN 14.5 Creatinine 1.20 Estimated GFR (MDRD) 49.00 BUN/Creatinine Ratio 12.08 Glucose 107.2 H Lactic Acid Calcium 8.38 L Magnesium 2.07 Total Bilirubin 0.41 AST 24.1 ALT 14.7 Alkaline Phosphatase 52.4 Troponin I < 0.012 NT-Pro-B Natriuret Pep 293 H Total Protein 6.40 Albumin 3.47 L Globulin 2.93 Albumin/Globulin Ratio 1.18 TSH 5.120 H Influ A Molecular Assay Influ B Molecular Assay RSV Antigen SARS CoV-2 RNA Rapid LIANA Imaging Imaging: EXAM: FRONTAL AND LATERAL VIEWS OF THE CHEST. HISTORY: Shortness of breath. COMPARISON: Chest radiograph 06/27/2023. FINDINGS: Post cholecystectomy. Normal heart size. No acute consolidation. No pleural effusion or pneumothorax. No acute osseous abnormality. IMPRESSION: No acute process. EXAM: CT ANGIOGRAPHY OF THE CHEST History: Shortness of breath Technique: 1.[address] of the chest utilizing CT angiography protocol. Multiplanar and maximum intensity projection reformations were performed. FINDINGS: Technically adequate for evaluation of pulmonary arteries and aorta. There are no pulmonary artery filling defects. No pulmonary parenchymal abnormality. Normal heart, great vessels and pericardium. No mediastinal lymphadenopathy. No acute chest wall abnormality. No acute findings of the upper abdomen. Impression: No evidence of pulmonary artery thrombus No acute findings of the chest Review Statement Review Statement: I have independently reviewed and interpreted the labs/EKGs/imaging that were ordered by the ER provider. I have reviewed all outside records that are available currently in our EMR including imaging/notes/labs from previous visits. Plan Plan: 1. Chest pain r/o - trop this morning undetectable. No anterior chest pain. Back pain clinically appears to be pleurisy with associated cough. Toradol prn. Check echo. 2. Hypertension - Cont home meds 3. Hyperlipidemia - Cont home meds 4. GERD - Cont home meds 5. Anxiety/depression - Cont home meds 6. Elevated tsh - Mild, consider outpatient recheck in 6-8 weeks. DVT Prophylaxis: Ambulation Time Spent: Greater than 80 minutes spent with patient, 50% of the time spent with this patient was devoted to counseling and coordination of care. [facility] minutes spent discussing advance care planning. FULL CODE Smoking Cessation: 3 minutes spent discussing smoking cessation. Admit to: Obs Discussed Plan of Care with Dr. Romel Barajas. Medications Medication Orders: Medications Ordered Category Date Time Status Acetaminophen [Tylenol] Meds 10/31/23 08:57 Active 650 mg PO Q4H PRN Amlodipine Besylate [Norvasc] Meds 10/31/23 21:00 Active 5 mg PO BEDTIME Aripiprazole [Abilify] Meds 10/31/23 21:00 Active 5 mg PO BEDTIME Diazepam [Valium] Meds 10/31/23 09:41 Active 5 mg PO TID PRN Hydrochlorothiazide Meds 11/01/23 09:00 Active 25 mg PO DAILY Ketorolac Tromethamine [Toradol] Meds 10/31/23 09:15 Active 15 mg IVP Q6HR PRN Lovastatin [Mevacor] Meds 10/31/23 21:00 Active 20 mg PO BEDTIME Metoprolol Tartrate [Lopressor] Meds 10/31/23 10:00 Active 25 mg PO BID Nicotine 14 mg [Nicoderm 14 mg] Meds 10/31/23 10:00 Active 1 patch TD DAILY Ondansetron HCl/Pf [Zofran 4 mg/2 ml] Meds 10/31/23 08:57 Active 4 mg IVP Q6H PRN Pantoprazole Sodium [Protonix] Meds 11/01/23 06:00 Active 40 mg PO QDAC2 Trazodone HCl [Desyrel] Meds 10/31/23 21:00 Active 150 mg PO BEDTIME lamotrigine Meds 10/31/23 21:00 Active 200 mg PO BEDTIME
[2023-10-31 13:13] LABS: BILIRUBIN,URINE Negative (NEGATIVE); CLARITY,URINE Clear (CLEAR); COLOR,URINE Yellow (YELLOW); GLUCOSE, URINE (UA) Negative (NEGATIVE); KETONES,URINE Negative (NEGATIVE); LEUKOCYTE ESTERASE ,URINE Negative (NEGATIVE); NITRITE,URINE Negative (NEGATIVE); PROTEIN,URINE Negative (NEGATIVE); URINE, BLOOD Negative (NEGATIVE); UROBILINOGEN,URINE 0.2 (0.2)
[2023-10-31] MEDS: ABILIFY PO SCH (20:25)
[2023-10-31] MEDS: DESYREL PO SCH (20:25)
[2023-10-31] MEDS: NORVASC PO SCH (20:25)
[2023-10-31] MEDS: MEVACOR PO SCH (20:25)
[2023-10-31] MEDS: VALIUM PO PRN (20:35)
[2023-11-01] MEDS: PROTONIX PO SCH (05:46)
[2023-11-01 06:26] LABS: ALANINE AMINOTRANSFERASE 14.7 U/L (0-35); ALBUMIN 3.52 g/dL (3.5-5.0); ALKALINE PHOSPHATASE 51.1 U/L (38-126); ASPARTATE AMINO TRANSFERASE 19.4 U/L (14-36); BILIRUBIN,TOTAL 0.41 mg/dL (0.2-1.3); BLOOD UREA NITROGEN 18.6 mg/dL (7-17); CALCIUM 8.53 mg/dL (8.4-10.2); CARBON DIOXIDE 30.3 mmol/L (22-30.0); CHLORIDE 104.9 mmol/L (98-107); CREATININE 1.43 mg/dL (0.60-1.30); GLUCOSE 104.9 mg/dL (74-106); POTASSIUM 4.09 mmol/L (3.5-5.1); SODIUM 138.6 mmol/L (134.5-145); TOTAL PROTEIN 6.4 g/dL (6.3-8.2)
[2023-11-01 07:13] LABS: BASOPHILS % (AUTO) 0.2 % (0.0-3.0); HEMOGLOBIN 13.1 g/dl (12.0-16.0); IMMATURE GRANULOCYTE % (AUTO) 0.2 % (0.0-5.0); LYMPHOCYTES # (AUTO) 2.6 K/uL (0.60-3.4); LYMPHOCYTES % (AUTO) 29.8 (10.0-50.0); MEAN CORPUSCULAR HEMOGLOBIN 30.4 pg (27.0-31.0); MEAN CORPUSCULAR HGB CONC 31.2 (31.8-35.4); MEAN CORPUSCULAR VOLUME 97.4 fl (81.0-99.0); MONOCYTES # (AUTO) 0.6 K/uL (0.4-2.0); MONOCYTES % (AUTO) 7.4 (0-10); NEUTROPHILS # (AUTO) 5.4 K/ul (2.0-6.9); NEUTROPHILS % (AUTO) 62.4 % (42.2-75.2); PLATELET COUNT 185 10^3/uL (140-440); RDW COEFFICIENT OF VARIATION 13.1 % (11.6-14.8); RED BLOOD COUNT 4.31 10^6/ul (4.20-5.40); WHITE BLOOD COUNT 8.68 K/ul (4.6-10.2)
[2023-11-01] MEDS: HYDROCHLOROTHIAZIDE PO SCH (08:39)
[2023-11-01] MEDS ORDERED: LAMICTAL PO SCH (09:00)
--- NOTE | 2023-11-01 09:38 | ECHO2D ---
Date of Exam: 10/31/2023 Ordering Physician: ARLYN BRYAN NP (PCP); OPAL HERRING NP (HOSP.) Room #: 117 Reason for Echo: CHEST PAIN, SHORTNESS OF BREATH, HYPERTENSION, HYPERCHOLESTEREMIA M-Mode Normal Adult Results LV Dimensions Normal Adult Results AoV Opening excursions >1.6 >1.6 LVEDD-base- 3.5-5.8 5.6 Ao root dimensions 2.0-3.7 3.4 LVESD-base- 3.1-4.6 L. Atrium dimensions 1.9-3.8 4.1 Post. Wall thickness 0.8-1.1 1.3 IV septum (thickness) 0.7-1.2 1.3 Post. Wall excursion 0.72-1.3 0.8 Septal motion 0.9 Systolic motion R. Ventricular cavity 1.5-2.0 NORMAL LVEF 60% 46% Paradoxical septal wall motion NORMAL 2-D : 2-D M Mode Echocardiogram was performed using apical four chamber and left parasternal long and short axis views. Mitral, tricuspid and aortic valves appear to be normal. MILDLY HYPOKINETIC LEFT VENTRICLE. Normal left ventricle cavity size. LEFT ATRIAL CAVITY IS ENLARGED. Aortic root appears to be normal. There is no pericardial effusion. There is no thrombus noted in the left ventricle or left atrial cavity. COLOR FLOW: MODERATE AORTIC REGURGITATION. M-MODE: MV: NORMAL AV: NORMAL TV: NORMAL PV: NORMAL CHAMBER SIZE: ENLARGED LEFT ATRIAL CAVITY. WALL MOTION: MILDLY HYPOKINETIC LEFT VENTRICLE. PERICARDIUM: NORMAL INTERPRETATION: 1. LEFT VENTRICULAR HYPERTROPHY WITH ENLARGED LEFT ATRIAL CAVITY. 2. LEFT VENTRICULAR CAVITY 5.6CM (BORDERLINE) 3. MILDLY HYPOKINETIC LEFT VENTRICLE, EJECTION FRACTION 45% TO 50%. 4. MODERATE AORTIC REGURGITATION. 5. DIFFICULT STUDY BODY HABITUS. MTDD
[2023-11-01 10:14] VITALS: BP 139/89; PULSE 62; RESP 19; TEMP 97.4
--- NOTE | 2023-11-01 10:56 | DCSUM ---
Admission Date Admission Date: 10/31/23 Discharge Date Discharge Date: 11/01/23 Admission Diagnosis Admission Diagnosis: 1. Chest pain rule out Discharge Diagnosis Discharge Diagnosis: 1. Chest pain r/o - trop this morning undetectable. No anterior chest pain. Back pain clinically appears to be pleurisy with associated cough. Toradol prn. Check echo. 2. Hypertension - Cont home meds 3. Hyperlipidemia - Cont home meds 4. GERD - Cont home meds 5. Anxiety/depression - Cont home meds 6. Elevated tsh - Mild, consider outpatient recheck in 6-8 weeks. Hospital Provider Hospital Provider: OPAL HERRING PA-C, [facility] Physician Primary Care Physician: ARLYN BRYAN APRN Summary of History and Physical Summary of History and Physical: Patient is a 43 year old female with pmhx of JACQUI, hypertension, CKD, GERD, anxiety/depression, hyperlipidemia, hx of papilledema, who presented to ER with worsening SOB since yesterday. She has an associated cough. She complains of pain in her upper back that is worse with inspiration. CTA chest was negative. Trops were negative, but not quite undetectable. No recent echo. BNP mildly elevated. Flu, rsv, and covid negative. No hx of cardiac disease per patient. Denies any anterior chest pain. Pt admitted for cardiac r/o. Hospital Course Subjective: Patient's trops were trended, unremarkable. SOB resolved. On RA. CTA chest negative for etiology. Pain described clinically seems more like pleurisy. Worse with cough and deep inspiration. Discussed nsaids, lidocaine patch, heat packs, tylenol. Pt states she is unable to take steroids. Echo performed showing EF mildly reduced 45-50% per Dr. Ravinder Barajas. Also signs of aortic regurg. Recommend outpatient cardiology f/u. Pt states she's also in the process of getting a CPAP. Discharged home in stable condition. Appearance: Pleasant, No Apparent Distress and Alert HEENT: MMM CVS: No Murmur Abdomen: Soft, Non-Tender and No Distention Respiratory: No Accessory Muscle Use Extremities: No Edema Vital Signs: Most Recent Vital Signs Temperature 97.4 F L 11/01/23 10:00 Temperature Source Temporal Artery Scan 11/01/23 10:00 Temperature Source Oral 10/30/23 22:17 Pulse Rate 62 11/01/23 10:00 Respiratory Rate 19 04/02/24 10:00 Blood Pressure 139/89 11/01/23 10:00 Blood Pressure Mean 105 11/01/23 10:00 Blood Pressure Right Arm 141/92 10/31/23 08:50 Blood Pressure Location Right Radial Artery 11/01/23 10:00 Blood Pressure Position Supine 11/01/23 10:00 O2 Sat by Pulse Oximetry 98 11/01/23 10:00 Oxygen Delivery Method Room Air 11/01/23 10:00 Oxygen Flow Rate 2 11/01/23 08:00 Height 5 ft 8 in 10/31/23 08:50 Weight 352 lb 10/31/23 08:50 Telemetry Type Remote Telemetry 11/01/23 07:00 Telemetry Monitoring Continues 11/01/23 07:00 Telemetry Heart Rate 56 L 11/01/23 07:00 Telemetry SPO2 98 11/01/23 07:00 EKG CA Interval 0.18 11/01/23 07:00 EKG QRS Interval 0.12 H 11/01/23 07:00 Telemetry Strip Reading SB WITH BBB 11/01/23 07:00 Imaging: Date of Exam: 10/31/2023 Ordering Physician: ARLYN BRYAN NP (PCP); OPAL HERRING NP (HOSP.) Room #: 117 Reason for Echo: CHEST PAIN, SHORTNESS OF BREATH, HYPERTENSION, HYPERCHOLESTERE ULICES M-Mode Normal Adult Results LV Dimensions Normal Adult Results AoV Opening excursions >1.6 >1.6 LVEDD-base- 3.5-5.8 5.6 Ao root dimensions 2.0-3.7 3.4 LVESD-base- 3.1-4.6 L. Atrium dimensions 1.9-3.8 4.1 Post. Wall thickness 0.8-1.1 1.3 IV septum (thickness) 0.7-1.2 1.3 Post. Wall excursion 0.72-1.3 0.8 Septal motion 0.9 Systolic motion R. Ventricular cavity 1.5-2.0 NORMAL LVEF 60% 46% Paradoxical septal wall motion NORMAL 2-D : 2-D M Mode Echocardiogram was performed using apical four chamber and left parasternal long and short axis views. Mitral, tricuspid and aortic valves appear to be normal. MILDLY HYPOKINETIC LEFT VENTRICLE. Normal left ventricle cavity size. LEFT ATRIAL CAVITY IS ENLARGED. Aortic root appears to be normal. There is no pericardial effusion. There is no thrombus noted in the left ventricle or left atrial cavity. COLOR FLOW: MODERATE AORTIC REGURGITATION. M-MODE: MV: NORMAL AV: NORMAL TV: NORMAL PV: NORMAL CHAMBER SIZE: ENLARGED LEFT ATRIAL CAVITY. WALL MOTION: MILDLY HYPOKINETIC LEFT VENTRICLE. PERICARDIUM: NORMAL INTERPRETATION: 1. LEFT VENTRICULAR HYPERTROPHY WITH ENLARGED LEFT ATRIAL CAVITY. 2. LEFT VENTRICULAR CAVITY 5.6CM (BORDERLINE) 3. MILDLY HYPOKINETIC LEFT VENTRICLE, EJECTION FRACTION 45% TO 50%. 4. MODERATE AORTIC REGURGITATION. 5. DIFFICULT STUDY BODY HABITUS. EXAM: FRONTAL AND LATERAL VIEWS OF THE CHEST. HISTORY: Shortness of breath. COMPARISON: Chest radiograph 06/27/2023. FINDINGS:Post cholecystectomy. Normal heart size. No acute consolidation. No pleural effusion or pneumothorax. No acute osseous abnormality. IMPRESSION: No acute process. EXAM: CT ANGIOGRAPHY OF THE CHEST History: Shortness of breath Technique: 1.[address] of the chest utilizing CT angiography protocol. Multiplanar and maximum intensity projection reformations were performed. FINDINGS: Technically adequate for evaluation of pulmonary arteries and aorta. There are no pulmonary artery filling defects. No pulmonary parenchymal abnormality. Normal heart, great vessels and pericardium. No mediastinal lymphadenopathy. No acute chest wall abnormality. No acute findings of the upper abdomen. Impression: No evidence of pulmonary artery thrombus No acute findings of the chest Lab Results Last 24 Hours: 11/01/23 10/31/23 05:25 13:01 WBC 8.68 RBC 4.31 Hgb 13.1 Hct 42.0 MCV 97.4 MCH 30.4 MCHC 31.2 L RDW Coeff of Nilo 13.1 Plt Count 185 Immature Gran % (Auto) 0.2 Neut % (Auto) 62.4 Lymph % (Auto) 29.8 Cassia % (Auto) 7.4 Eos % (Auto) 0.0 Baso % (Auto) 0.2 Neut # (Auto) 5.4 Lymph # (Auto) 2.6 Cassia # (Auto) 0.6 Eos # (Auto) 0.0 Baso # (Auto) 0.0 Immature Gran # (Auto) 0.0 Sodium 138.6 Potassium 4.09 Chloride 104.9 Carbon Dioxide 30.3 H Anion Gap 7.49 BUN 18.6 H Creatinine 1.43 H Estimated GFR (MDRD) 40.00 BUN/Creatinine Ratio 13.00 Glucose 104.9 Calcium 8.53 Total Bilirubin 0.41 AST 19.4 ALT 14.7 Alkaline Phosphatase 51.1 Total Protein 6.40 Albumin 3.52 Globulin 2.88 Albumin/Globulin Ratio 1.22 Urine Color Yellow Urine Clarity Clear Urine pH 7.0 Ur Specific [place] 1.020 Urine Protein Negative Urine Glucose (UA) Negative Urine Ketones Negative Urine Blood Negative Urine Nitrite Negative Urine Bilirubin Negative Urine Urobilinogen 0.2 Ur Leukocyte Esterase Negative Discharge Instructions Discharge Planning: Discharge Planning > [address] Romel Barajas. Discharge Medications: Medications at Discharge (Home Meds & RX) trazodone 50 mg tablet 150 mg PO QHS 02/17/21 aripiprazole 15 mg tablet 5 mg PO BEDTIME 12/20/22 hydrochlorothiazide 25 mg tablet 25 mg PO QDAY 90 days #90 tabs 09/01/23 lovastatin 20 mg tablet 20 mg PO QHS #30 tabs 09/01/23 metoprolol tartrate 25 mg tablet 25 mg PO BID #60 tabs 09/01/23 pantoprazole 40 mg tablet,delayed release 40 mg PO QDAY #30 tabs 09/01/23 sumatriptan succinate 50 mg tablet See Rx Instructions .Route .COMPLEX #15 tabs 09/01/23 diazepam 5 mg tablet 5 mg PO TID PRN vertigo #45 tabs 09/06/23 ondansetron 4 mg disintegrating tablet 4 mg PO Q6H PRN nausea and vomiting #10 tabs 09/14/23 amlodipine 5 mg tablet 5 mg PO BEDTIME 09/24/23 lamotrigine 200 mg tablet (Lamictal) 200 mg PO DAILY 11/01/23 Discharge Plan Discharge Discharge Orders: Discharge Patient (ONCE); Ordered 11/01/23 Ordered By: OPAL HERRING Activity Restrictions/Additional Instructions: DISCHARGE TO HOME DX: PLEURISY PHARMACY: [facility] PRESCRIBED MAY DO HEATING PACKS, LIDOCAINE PATCHES, NSAIDS/TYLENOL FOR PAIN FOLLOW UP WITH PCP REGARDING ECHO FINDINGS, NEEDS OUTPATIENT MONITORING CONTINUE WITH TRYING TO GET CPAP FOR JACQUI Instructions: Pleurisy (DC) Care Plan Goals: Problem: Alteration in Comfort/Pain Goal: Manage pain at a tolerable level Instructions: Monitor character, location and intensity Express expectations of pain relief Pain medication as ordered Position for maximal comfort Pain management prior to activities Patient Disposition: HOME SELF-CARE Prescriptions: New benzonatate 100 mg capsule 100 mg PO TID Qty: 30 0RF Continued hydrochlorothiazide 25 mg tablet 25 mg PO QDAY 90 Days Qty: 90 0RF ondansetron 4 mg tablet,disintegrating 4 mg PO Q6H PRN (Reason: nausea and vomiting) Qty: 10 0RF amlodipine 5 mg tablet 5 mg PO BEDTIME lamotrigine [Lamictal] 200 mg tablet 200 mg PO DAILY trazodone 50 mg tablet 150 mg PO QHS aripiprazole 15 mg tablet 5 mg PO BEDTIME Patient Comments: kb diazepam 5 mg tablet 5 mg PO TID PRN (Reason: vertigo) Qty: 45 2RF lovastatin 20 mg tablet 20 mg PO QHS Qty: 30 2RF metoprolol tartrate 25 mg tablet 25 mg PO BID Qty: 60 2RF pantoprazole 40 mg tablet,delayed release (DR/EC) 40 mg PO QDAY Qty: 30 2RF sumatriptan succinate 50 mg tablet See Rx Instructions .ROUTE .COMPLEX Qty: 15 1RF Dose Instruction: TAKE ONE TABLET AT THE START OF HEADACHE Rx Instructions: TAKE ONE TABLET AT THE START OF HEADACHE Did you review [place] ELIGIBILITY MANAGER for ALL controlled substances?: Not Applicable Discussed opioids are addictive and Narcan is available by prescription or from pharmacy.: No Condition: Stable Ref[facility]: [facility] [Primary Care Provider] - 11/07/23 11:30 am
== END 2023-11-01 13:20 | disposition home or self-care (01) ==
LOC: ED 22:07 → MEDSURG B 22:07
PROVIDERS: ADMIT Hospitalist; ATTEND Physician Assistant
DX: K21.9 Gastro-esophageal reflux disease without esophagitis; I10 Essential (primary) hypertension; R06.00 Dyspnea, unspecified; R09.1 Pleurisy; F41.9 Anxiety disorder, unspecified; E78.5 Hyperlipidemia, unspecified; F32.A Depression, unspecified; R07.9 Chest pain, unspecified; Z20.822 Contact with and (suspected) exposure to COVID-19; G47.33 Obstructive sleep apnea (adult) (pediatric); R94.6 Abnormal results of thyroid function studies; F17.210 Nicotine dependence, cigarettes, uncomplicated; E78.00 Pure hypercholesterolemia, unspecified